=== PATIENT | female | born 1930 | race Caucasian/White ===

== ENCOUNTER 2016-01-22 13:54 | Outpatient (RCR) | payer MEDICARE ==
[2016-01-14 14:10] LABS: BASOPHILS % (AUTO) 0 % (0-10); EOSINOPHILS # (AUTO) 0.2 10^3/uL (0.0-0.3); EOSINOPHILS % (AUTO) 2 % (0-10); LYMPHOCYTES # (AUTO) 3.8 X 10^3 (1.0-4.0); LYMPHOCYTES % (AUTO) 52 % (12-44); MEAN CORPUSCULAR HGB CONC 34 G/DL (32-36); MEAN CORPUSCULAR VOLUME 94 FL (80-99); MEAN PLATELET VOLUME 9.6 FL (7.4-10.4); MONOCYTES # (AUTO) 0.8 X 10^3 (0.0-1.0); MONOCYTES % (AUTO) 11 % (0-12); NEUTROPHILS # (AUTO) 2.5 X 10^3 (1.8-7.8); NEUTROPHILS % (AUTO) 34 % (42-75); PLATELET COUNT 226 10^3/uL (130-400); RED BLOOD COUNT 3.97 10^6/uL (4.35-5.85); RED CELL DISTRIBUTION WIDTH 13.8 % (10.0-14.5); WHITE BLOOD COUNT 7.3 10^3/uL (4.3-11.0)
[2016-01-14 14:11] LABS: MEAN CORPUSCULAR HEMOGLOBIN 31 PG (25-34)
[2016-01-14 14:47] LABS: ALBUMIN 3.9 G/DL (3.2-4.5); BILIRUBIN,TOTAL 0.5 MG/DL (0.1-1.0); CALCIUM 9.5 MG/DL (8.5-10.1); CREATININE SERUM 1.01 MG/DL (0.60-1.30); POTASSIUM 4.2 MMOL/L (3.6-5.0); TOTAL PROTEIN 5.9 G/DL (6.4-8.2)
[~2016-01-22 13:54] MED LIST: AMIT10TA6 PO; AMT10T PO; ASP81TEC PO; ATEN25TA PO; CALC-794 PO; DENOSUMAB 60 MG/1 ML (PROLIA) SQ SCH; FURO-125 PO; HYDR-3583 PO; LORA5TAB9 PO; MULT-963 PO; OMEP20CA6 PO; PANT20TA2 PO; PANT40TA PO; SCR1T1 PO; TAMO20TA2 PO; VIT1TABL93 PO
== END 2016-04-13 | disposition home or self-care (01) ==
LOC: ONC 13:54
PROVIDERS: ATTEND Internal Medicine Hematology & Oncology
DX: C50.912 Malignant neoplasm of unspecified site of left female breast (principal); C85.83 Other specified types of non-Hodgkin lymphoma, intra-abdominal lymph nodes; M81.0 Age-related osteoporosis without current pathological fracture; N18.3 Chronic kidney disease, stage 3 (moderate); Z92.3 Personal history of irradiation; Z90.79 Acquired absence of other genital organ(s); Z79.899 Other long term (current) drug therapy; Z17.0 Estrogen receptor positive status [ER+]; Z92.21 Personal history of antineoplastic chemotherapy
CPT/HCPCS: 36415; 80053; 83615; 85025; 96372; 99213

== ENCOUNTER 2016-07-14 10:45 | Outpatient (RCR) | payer MEDICARE ==
[~2016-07-14 10:45] MED LIST changes: -DENOSUMAB 60 MG/1 ML (PROLIA) SQ SCH
== END 2016-07-27 15:54 | disposition home or self-care (01) ==
PROVIDERS: ATTEND Family Medicine
DX: M75.52 Bursitis of left shoulder (principal)

== ENCOUNTER 2016-07-26 14:45 | Outpatient (RCR) | payer MEDICARE ==
[2016-07-26 15:11] LABS: BASOPHILS # (AUTO) 0.1 10^3/uL (0.0-0.1); BASOPHILS % (AUTO) 1 % (0-10); EOSINOPHILS # (AUTO) 0.3 10^3/uL (0.0-0.3); EOSINOPHILS % (AUTO) 4 % (0-10); LYMPHOCYTES # (AUTO) 2.8 X 10^3 (1.0-4.0); LYMPHOCYTES % (AUTO) 41 % (12-44); MEAN CORPUSCULAR HGB CONC 33 G/DL (32-36); MEAN CORPUSCULAR VOLUME 96 FL (80-99); MEAN PLATELET VOLUME 9.3 FL (7.4-10.4); MONOCYTES # (AUTO) 0.8 X 10^3 (0.0-1.0); MONOCYTES % (AUTO) 11 % (0-12); NEUTROPHILS # (AUTO) 2.9 X 10^3 (1.8-7.8); NEUTROPHILS % (AUTO) 43 % (42-75); PLATELET COUNT 262 10^3/uL (130-400); RED BLOOD COUNT 3.91 10^6/uL (4.35-5.85); RED CELL DISTRIBUTION WIDTH 13.9 % (10.0-14.5); WHITE BLOOD COUNT 6.8 10^3/uL (4.3-11.0)
[2016-07-26 15:12] LABS: MEAN CORPUSCULAR HEMOGLOBIN 31 PG (25-34)
[2016-07-26 16:06] LABS: ALBUMIN 3.6 G/DL (3.2-4.5); BILIRUBIN,TOTAL 0.5 MG/DL (0.1-1.0); CREATININE SERUM 0.92 MG/DL (0.60-1.30); POTASSIUM 4.1 MMOL/L (3.6-5.0); TOTAL PROTEIN 5.6 G/DL (6.4-8.2)
[2016-07-26] MEDS ORDERED: DENOSUMAB 60 MG/1 ML (PROLIA) SQ SCH (16:20)
== END 2016-10-24 | disposition home or self-care (01) ==
LOC: ONC 14:45
PROVIDERS: ATTEND Internal Medicine Hematology & Oncology
DX: C50.112 Malignant neoplasm of central portion of left female breast (principal); C85.83 Other specified types of non-Hodgkin lymphoma, intra-abdominal lymph nodes; M81.0 Age-related osteoporosis without current pathological fracture; N18.3 Chronic kidney disease, stage 3 (moderate); Z92.3 Personal history of irradiation; Z90.79 Acquired absence of other genital organ(s); Z79.899 Other long term (current) drug therapy; Z17.0 Estrogen receptor positive status [ER+]; Z92.21 Personal history of antineoplastic chemotherapy
CPT/HCPCS: 36415; 80053; 83615; 85025; 96372; 99213

== ENCOUNTER → 2016-07-26 | Outpatient (CLI) | payer MEDICARE | LOC: LAB 15:07 | PROVIDERS: ATTEND Internal Medicine | DX: R73.9 Hyperglycemia, unspecified (principal) | CPT/HCPCS: 36415; 83036 ==

== ENCOUNTER 2016-11-08 11:00 | Outpatient (CLI) | payer MEDICARE ==
[~2016-11-08] VITALS: Ht 165.1 cm; Wt 57.2 kg
[2016-11-08] MEDS ORDERED: ATEN50TA PO (11:03)
[2016-11-08] MEDS ORDERED: SUCR1TAB PO (11:03)
[2016-11-08] MEDS ORDERED: AMIT25TA9 PO (11:03)
[2016-11-08] MEDS ORDERED: PANT40TA3 PO (11:03)
[2016-11-08] MEDS ORDERED: CHOL500049 PO (11:03)
== END 2016-11-08 11:42 ==
LOC: PREOP 11:00
PROVIDERS: ATTEND Surgery
DX: Z01.818 Encounter for other preprocedural examination (principal); K21.9 Gastro-esophageal reflux disease without esophagitis; R11.0 Nausea; R10.11 Right upper quadrant pain

== ENCOUNTER 2016-11-09 09:25 | Day surgery (SDC) | payer MEDICARE ==
[~2016-11-09] VITALS: Ht 165.1 cm; Wt 57.2 kg
[~2016-11-09 09:25] MED LIST changes: +AMIT25TA9 PO; +ATEN50TA PO; +CHOL500049 PO; +PANT40TA3 PO; +SUCR1TAB PO
[2016-11-09 09:35] VITALS: BP 115/64
[2016-11-09] MEDS ORDERED: NS IV 500 ML 500 ML IV PRN (09:35)
[2016-11-09] MEDS ORDERED: NS IV 500 ML 500 ML ONE (09:38)
--- NOTE | 2016-11-09 09:43 | Conscious Sedation/ASA ---
Conscious Sedation Pre-Proced Time Reviewed: 09:30 ASA Class: 2 Airway Mallampati Classification: (manzanita appropriate class) I. II. III, IV Lungs Heart ASA score ASA 1: a normal healthy patient ASA 2: a patient with a mild systemic disease (mid diabetes, controlled hypertension, obesity ASA 3: a patient with a severe systemic disease that limits activity (angina , COPD, prior Myocardial infarction) ASA 4: a patient with an incapacitating disease that is a constant threat to life (CHF, renal failure) ASA 5: a moribund patient not expected to survive 24 hrs. (ruptured aneurysm) ASA 6: a declared brain patient whose organs are being harvested. For emergent operations, add the letter E after the classification Grade 2 Sedation Plan: Analgesia, Amnesia, Plan communicated to team members, Discussed options with patient/fam, Discussed risks with patient/fam Note The patient is an appropriate candidate to undergo the planned procedure, sedation, and anesthesia. The patient immediately re-assessed prior to indication. INDIANA LOBO MD Nov 09, 2016 9:43 am
--- NOTE | 2016-11-09 09:44 | Progress Note-Pre Operative ---
Pre-Operative Progress Note H&P Reviewed The H&P was reviewed, patient examined and no changes noted. Date Seen by Provider: Nov 09, 2016 Time Seen by Provider: : Date H&P Reviewed: Nov 09, 2016 Time H&P Reviewed: : Pre-Operative Diagnosis: INDIANA OLMOS MD Nov 09, 2016 9:44 am
[2016-11-09] MEDS ORDERED: MIDAZOLAM 2 MG/2 ML (VERSED) VIAL IVP PRN (09:45)
[2016-11-09] MEDS ORDERED: ACETAMINOPHEN 325 MG TABLET/CAPLET (TYLENOL) PO PRN (09:45)
[2016-11-09] MEDS ORDERED: HYDROcodone/APAP 5 MG/325 MG (LORTAB) TAB PO PRN (09:45)
[2016-11-09] MEDS ORDERED: ONDANSETRON 4 MG/2 ML (SDV) Z0FRAN IV PRN (09:45)
[2016-11-09] MEDS ORDERED: LIDOCAINE JELLY 2% (XYLOCAINE) 5 ML TUBE MM PRN (09:45)
[2016-11-09] MEDS ORDERED: HURRICAINE EXT TUBE (BENZOCAINE) XX PRN (09:45)
[2016-11-09] MEDS ORDERED: fentaNYL INJECTION 100 MCG/2 ML AMP ONE (09:49)
[2016-11-09] MEDS ORDERED: LIDOCAINE JELLY 2% (XYLOCAINE) 5 ML TUBE ONE (09:49)
[2016-11-09] MEDS ORDERED: MIDAZOLAM 2 MG/2 ML (VERSED) VIAL ONE ×3 (09:49→09:50)
[2016-11-09] MEDS ORDERED: HURRICAINE EXT TUBE (BENZOCAINE) ONE (09:50)
[2016-11-09] MEDS: fentaNYL INJECTION 100 MCG/2 ML AMP IVP PRN ×2 (10:02→10:19)
[2016-11-09 11:00] VITALS: BP 114/53
--- NOTE | 2016-11-09 11:02 | Progress Note-Post Operative ---
Post-Operative Progess Note Surgeon (s)/Auto Rental Supervisor (s) Surgeon INDIANA LOBO MD Auto Rental Supervisor: none Pre-Operative Diagnosis GERD Post-Operative Diagnosis reflux esophagitis(class B), moderate HH(3cm), mild gastritis. Procedure & Operative Findings Date of Procedure 11/09/16 Procedure Performed/Findings EGD with bx Anesthesia Type CS Estimated Blood Loss Estimated blood loss (mL): minimal Specimens/Packing Specimens Removed GE jxn, antrum INDIANA LOBO MD Nov 09, 2016 11:02 am
--- NOTE | 2016-11-09 11:04 | Discharge Inst-Surgical ---
D/C Lap Instructions-LASHELL Follow Up Appt in 4 weeks Activity as tolerated High Fiber Diet 25g or more per day Avoid Alcohol, Caffeine, Spicy [place] and Acid foods. Drink 64 fluid oz or more of fluids per day. Symptoms to Report: Fever over 101 degree F, Nausea/Vomiting If any problems/questions: Contact your physician or go to Emergency Room INDIANA LOBO MD Nov 09, 2016 11:04 am
[2016-11-09 11:30] VITALS: BP 110/61
[2016-11-09 12:30] VITALS: BP 110/61
--- NOTE | 2016-11-09 14:09 | OPERATIVE REPORT ---
DATE OF SERVICE: 11/09/2016 ATTENDING PRIMARY CARE PHYSICIAN: Dr. Betzy Joseph PREOPERATIVE DIAGNOSIS: Gastroesophageal reflux disease. POSTOPERATIVE DIAGNOSES: Reflux esophagitis class B, moderate-sized hiatal hernia 3 cm in size and uigh-hv-cauruski gastritis. PROCEDURE: EGD with biopsy. SURGEON: Indiana Lobo MD ANESTHESIA: Conscious sedation. ESTIMATED BLOOD LOSS: Minimal. FINDINGS: Reflux esophagitis class B, moderate-sized hiatal hernia 3 cm in size and cmbs-rn-zhperbrg gastritis. No distal obstructions. DISPOSITION: The patient tolerated the procedure well. 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 She underwent chemotherapy and radiation. She also does have a history of left breast cancer, underwent lumpectomy and sentinel biopsy in 2009 followed by radiation. She also underwent another round of chemotherapy with Rituxan for the lymphoma in 2005. She did have an EGD done in August of 2014 for reflux type of symptoms and found to have a reflux esophagitis as well as hiatal hernia. She is having recurrent symptoms of gastroesophageal reflux disease. DESCRIPTION OF PROCEDURE: The patient was brought to the endoscopy suite, laid in the left lateral decubitus position. After adequate IV pain and sedative medications and conscious sedation anesthesia, the mouthpiece was applied. The endoscope was placed in the mouth, visualizing the pharynx and hypopharyngeal region. Vocal cords, epiglottis and vallecula identified and appeared to be normal. The endoscope was then advanced to the first, second and third portions of the esophagus at the level of the GE junction, the GE junction was intrathoracic consistent with a hiatal hernia. There were no ulcers or strictures identified in this region. A biopsy was taken of the GE junction using biopsy forceps with visualization of good hemostasis. The endoscope was then easily advanced in the stomach and the endoscope retroflexed, visualizing a moderate-sized hiatal hernia approximately 3 cm in size. This appears to be the root of her symptoms including the pain as well as the recurrent episodes of reflux. There was tbjm-xq-jtflhtup gastritis. There were no formal ulcers, polyps or any neoplasms throughout the stomach. A biopsy of this was taken of the stomach antrum with visualization of good hemostasis. The endoscope was then advanced to the pylorus and the first and second portions of the duodenum, which appeared normal with no distal obstructions. The endoscope was then slowly withdrawn taking a second look and suctioning of residual air with no additional findings. The patient tolerated the procedure well. We will have her continue with medical management with the necessary lifestyle and diet accommodation including small and more frequent meals, avoidance of eating at night as well as head elevation while lying supine. She is currently on Protonix 40 mg b.i.d. as well as Carafate and we will have her continue with medical regimen. She also needs to avoid caffeinated beverages, spicy, greasy and acidic foods. Job ID: [id number] DocumentID: [id number] Dictated Date: 11/09/2016 10:47:56 R&D Lab Technician Date: 11/09/2016 14:09:29 Dictated By: INDIANA LOBO MD
== END 2016-11-09 12:30 | disposition home or self-care (01) ==
LOC: ENDO 09:25
PROVIDERS: ATTEND Surgery
DX: K21.0 Gastro-esophageal reflux disease with esophagitis (principal); K44.9 Diaphragmatic hernia without obstruction or gangrene; K29.70 Gastritis, unspecified, without bleeding; I10 Essential (primary) hypertension; Z85.3 Personal history of malignant neoplasm of breast; Z85.72 Personal history of non-Hodgkin lymphomas; Z79.899 Other long term (current) drug therapy

== ENCOUNTER → 2017-01-03 | Outpatient (CLI) | payer MEDICARE ==
--- NOTE | 2017-01-03 12:29 | Diagnostic Imaging Report ---
EXAMINATION: PA and lateral views of the chest. INDICATION: Shortness of breath. COMPARISON: 05/08/15. FINDINGS: There is elevation of the left hemidiaphragm similar to prior exams. There is mildly enlarged cardiac size. Suggestion of a hiatal hernia is noted and is confirmed on a prior CT scan. Mild medial right basilar atelectasis or scarring is noted. No effusion or pneumothorax. Lower thoracic spine compression fractures seen at T10 and T12 levels. Surgical clips in the upright abdomen and over the left breasts are seen. IMPRESSION: Chronic elevation of the left hemidiaphragm. Mild atelectasis or scarring in the medial right lung base. Dictated by: Dictated on workstation # [id number]
== END ==
LOC: RAD 11:50
PROVIDERS: ATTEND Nurse Practitioner Family
DX: R06.02 Shortness of breath (principal)
CPT/HCPCS: 71020

== ENCOUNTER → 2017-03-17 | Outpatient (CLI) | payer MEDICARE | LOC: CARD 10:56 | PROVIDERS: ATTEND Family Medicine | DX: R01.1 Cardiac murmur, unspecified (principal); I48.91 Unspecified atrial fibrillation | CPT/HCPCS: 93306 ==

== ENCOUNTER → 2017-04-17 | Outpatient (CLI) | payer MEDICARE ==
--- NOTE | 2017-04-17 11:13 | Diagnostic Imaging Report ---
INDICATION: Right rib injury from a fall. FINDINGS: There appears to be a fracture of the right anterolateral sixth rib. There appears to be old healed fractures of the fourth, fifth and seventh ribs. IMPRESSION: There are fractures of the fourth through seventh ribs on the right thoracic cage. These appear old except for possibly the sixth rib which may be acute. Dictated by: Dictated on workstation # [id number]
== END ==
LOC: RAD 10:39
PROVIDERS: ATTEND Nurse Practitioner Family
DX: S20.211A Contusion of right front wall of thorax, initial encounter (principal); Z87.81 Personal history of (healed) traumatic fracture; W19.XXXA Unspecified fall, initial encounter
CPT/HCPCS: 71100

== ENCOUNTER 2017-07-07 09:52 | Outpatient (RCR) | payer MEDICARE ==
[~2017-07-07 09:52] MED LIST changes: +DENOSUMAB 60 MG/1 ML (PROLIA) CANCER CTR SQ SCH
[2017-07-07 10:09] LABS: BASOPHILS % (AUTO) 1 % (0-10); EOSINOPHILS # (AUTO) 0.3 10^3/uL (0.0-0.3); EOSINOPHILS % (AUTO) 4 % (0-10); HEMATOCRIT 40 % (35-52); HEMOGLOBIN 13.5 G/DL (11.5-16.0); LYMPHOCYTES # (AUTO) 3.5 X 10^3 (1.0-4.0); LYMPHOCYTES % (AUTO) 48 % (12-44); MEAN CORPUSCULAR HEMOGLOBIN 31 PG (25-34); MEAN CORPUSCULAR HGB CONC 34 G/DL (32-36); MEAN CORPUSCULAR VOLUME 91 FL (80-99); MEAN PLATELET VOLUME 9.9 FL (7.4-10.4); MONOCYTES # (AUTO) 0.8 X 10^3 (0.0-1.0); MONOCYTES % (AUTO) 10 % (0-12); NEUTROPHILS # (AUTO) 2.7 X 10^3 (1.8-7.8); NEUTROPHILS % (AUTO) 38 % (42-75); PLATELET COUNT 189 10^3/uL (130-400); RED BLOOD COUNT 4.39 10^6/uL (4.35-5.85); WHITE BLOOD COUNT 7.3 10^3/uL (4.3-11.0)
[2017-07-07 10:27] LABS: BILIRUBIN,TOTAL 0.6 MG/DL (0.1-1.0); CALCIUM 9.6 MG/DL (8.5-10.1); CREATININE SERUM 1.11 MG/DL (0.60-1.30); POTASSIUM 3.9 MMOL/L (3.6-5.0); TOTAL PROTEIN 6.2 GM/DL (6.4-8.2)
== END 2017-10-05 | disposition home or self-care (01) ==
LOC: ONC 09:52
PROVIDERS: ATTEND Internal Medicine Hematology & Oncology
DX: C50.112 Malignant neoplasm of central portion of left female breast (principal); C85.83 Other specified types of non-Hodgkin lymphoma, intra-abdominal lymph nodes; M81.0 Age-related osteoporosis without current pathological fracture; N18.3 Chronic kidney disease, stage 3 (moderate); Z92.3 Personal history of irradiation; Z90.79 Acquired absence of other genital organ(s); Z79.899 Other long term (current) drug therapy; Z17.0 Estrogen receptor positive status [ER+]; Z92.21 Personal history of antineoplastic chemotherapy
CPT/HCPCS: 36415; 80053; 83615; 85025; 96372

== ENCOUNTER 2018-01-04 13:51 | Outpatient (RCR) | payer MEDICARE ==
[~2018-01-04 13:51] MED LIST changes: -DENOSUMAB 60 MG/1 ML (PROLIA) CANCER CTR SQ SCH
[2018-01-04] MEDS ORDERED: DENOSUMAB 60 MG/1 ML (PROLIA) CANCER CTR SQ SCH (14:15)
== END 2018-04-04 | disposition home or self-care (01) ==
LOC: ONC 13:51
PROVIDERS: ATTEND Internal Medicine Hematology & Oncology
DX: C50.112 Malignant neoplasm of central portion of left female breast (principal); C85.83 Other specified types of non-Hodgkin lymphoma, intra-abdominal lymph nodes; M81.0 Age-related osteoporosis without current pathological fracture; N18.3 Chronic kidney disease, stage 3 (moderate); Z92.3 Personal history of irradiation; Z90.79 Acquired absence of other genital organ(s); Z79.899 Other long term (current) drug therapy; Z17.0 Estrogen receptor positive status [ER+]; Z92.21 Personal history of antineoplastic chemotherapy
CPT/HCPCS: 96372

== ENCOUNTER → 2018-03-08 | Outpatient (CLI) | payer MEDICARE ==
--- NOTE | 2018-03-08 13:49 | Diagnostic Imaging Report ---
INDICATION: Osteoporosis screening in postmenopausal female. Patient has past history of osteopenia. COMPARISON: 03/01/2013. FINDINGS: AP Spine L1-L4: [BMD (g/cm2): 1.200] [T-Score: 0.0] [Z-Score: 2.2] [BMD Previous: 1.195] [BMD % Change: 0.4] LT Hip Neck: [BMD (g/cm2): .847] [T-Score: -1.4] [Z-Score: 1.3] LT Hip Total: [BMD (g/cm2):0.896] [T-Score:-0.9] [Z-Score: 1.7] [BMD Previous: .917] [BMD % Change: n/a] RT Hip Neck: [BMD (g/cm2):0.797] [T-Score:-1.7] [Z-Score:0.9] RT Hip Total: [BMD (g/cm2):0.785] [T-score:-1.8] [Z-Score:0.8] [BMD Previous:0.804] [BMD % Change:n/a] *Indicates significant change from prior examination based on 95% confidence level. World Health Organization criteria for BMD interpretation classify patients as Normal (T-score at or above -1.0), Osteopenic (T-score between -1.0 and -2.5) or Osteoporotic (T-score at or below -2.5). LIMITATIONS AND MODIFICATION: None. FRACTURE RISK (FRAX SCORE): The ten year probability of (%): Major Osteoporotic Fracture: [13] Hip Fracture: [4.1] IMPRESSION: 1. Osteopenia (Low bone mass). 2. No significant change in bone mineral density since prior examination. 3. See below National Osteoporosis Foundation guidelines on when to potentially initiate pharmacologic therapy. Based on the National Osteoporosis Foundation Guidelines, pharmacologic treatment should be initiated in any of the following, unless clinical conditions suggest otherwise: * Any patient with prior fragility fracture of the hip or vertebrae. A spine fracture indicates 5X risk for subsequent spine fracture and 2X risk for subsequent hip fracture. * Osteoporosis (T-score <-2.5). * Postmenopausal women and men age 50 and older with low bone mass/osteopenia (T-score between -1.0 and -2.5) by DXA and 10-year major osteoporotic fracture greater than 20% or a 10-year probability of hip fracture greater than 3%. These fracture risks are supplied above in the FRAX score, if applicable. * Clinician judgement and/or patient preferences may indicate treatment for people with 10-year fracture probabilities above or below these levels. Dictated by: Dictated on workstation # [id number]
== END ==
LOC: RAD 11:41
PROVIDERS: ATTEND Nurse Practitioner Family
DX: Z13.820 Encounter for screening for osteoporosis (principal); M85.88 Other specified disorders of bone density and structure, other site; Z78.0 Asymptomatic menopausal state
CPT/HCPCS: 77080

== ENCOUNTER 2018-04-28 17:05 | Inpatient (IN) | payer MEDICARE ==
[~2018-04-28] VITALS: Ht 160 cm; Wt 54.6 kg
[2018-04-28 17:55] VITALS: BP 115/69
--- NOTE | 2018-04-28 17:55 | NUR ---
REINALDO CHACON admitted to room 409-1, with an admitting diagnosis of PNA, on 04/28/18 from direct admit via wc, accompanied by son.REINALDO CHACON introduced to surroundings, call light, bed controls, phone, TV, temperature control, lights, meal times, smoking policy, visitor policy, side rail policy, bathrooms and showers. Patient Rights given to patient in the handbook. CHACONREINALDO Layne verbalizes understanding that [facility] is not responsible for the loss or damage to any personal effects or valuables that are kept in the patients posession during their hospitalization. The Patient's Care Plans were discussed with the patient and family as well as Discharge Planning. REINALDO CHACON/son verbalizes understanding of Interdisciplinary Patient Education. Patient and/or family were informed about the Rapid Response Team and its purpose.
[2018-04-28] MEDS ORDERED: D5 LR IV SOLUTION 1,000 ML IV SCH (18:00)
[2018-04-28] MEDS ORDERED: AZITHROMYCIN INJECTION 500 MG in NS (IVPB) 250 ML IV ONE (18:00)
[2018-04-28 18:34] LABS: BASOPHILS % (AUTO) 0 % (0-10); EOSINOPHILS % (AUTO) 0 % (0-10); HEMATOCRIT 40 % (35-52); HEMOGLOBIN 13.9 G/DL (11.5-16.0); LYMPHOCYTES # (AUTO) 1.9 X 10^3 (1.0-4.0); LYMPHOCYTES % (AUTO) 23 % (12-44); MEAN CORPUSCULAR HEMOGLOBIN 32 PG (25-34); MEAN CORPUSCULAR HGB CONC 35 G/DL (32-36); MEAN CORPUSCULAR VOLUME 91 FL (80-99); MEAN PLATELET VOLUME 9.8 FL (7.4-10.4); MONOCYTES # (AUTO) 1.2 X 10^3 (0.0-1.0); MONOCYTES % (AUTO) 14 % (0-12); NEUTROPHILS # (AUTO) 5.2 X 10^3 (1.8-7.8); NEUTROPHILS % (AUTO) 63 % (42-75); PLATELET COUNT 176 10^3/uL (130-400); RED CELL DISTRIBUTION WIDTH 13.9 % (10.0-14.5); WHITE BLOOD COUNT 8.3 10^3/uL (4.3-11.0)
[2018-04-28] MEDS ORDERED: ACETAMINOPHEN 325 MG TABLET PO PRN (19:00)
[2018-04-28 19:05] LABS: ALBUMIN 4.5 GM/DL (3.2-4.5); BILIRUBIN,TOTAL 0.8 MG/DL (0.1-1.0); CALCIUM 9.9 MG/DL (8.5-10.1); CREATININE SERUM 0.99 MG/DL (0.60-1.30); TOTAL PROTEIN 7.1 GM/DL (6.4-8.2)
--- NOTE | 2018-04-28 19:09 | Diagnostic Imaging Report ---
INDICATION: Cough. COMPARISON: 01/03/2017. TECHNIQUE: Single view of the chest was obtained. FINDINGS: Left lower lobe subtotal consolidations are present. Heart is enlarged. No pneumothorax. Possible trace left pleural effusion. IMPRESSION: Left lower lobe consolidations are likely due to pneumonia. Possible trace left parapneumonic effusion. Advise followup PA and lateral chest radiographs in 4 weeks after appropriate medical management to ensure resolution. Dictated by: Dictated on workstation # [id number]
[2018-04-28] MEDS ORDERED: ONDANSETRON 4 MG (ZOFRAN) ORAL DISSOLVE TAB PO PRN (19:30)
[2018-04-28] MEDS ORDERED: ONDANSETRON 4 MG/2 ML (SDV) Z0FRAN IVP PRN (19:30)
[2018-04-28] MEDS ORDERED: HYDROcodone/APAP 5 MG/325 MG (LORTAB) TAB PO PRN (19:30)
[2018-04-28] MEDS ORDERED: CALCIUM CARBONATE 500 MG (TUMS) TAB.CHEW PO PRN (19:30)
[2018-04-28] MEDS ORDERED: MELATONIN 3 MG TABLET PO PRN (19:30)
[2018-04-28] MEDS ORDERED: diphenhydrAMINE 25 MG TAB (BENADRYL) PO PRN (19:30)
[2018-04-28] MEDS ORDERED: LOPERAMIDE 2 MG (IMODIUM) CAP PO PRN (19:30)
[2018-04-28] MEDS ORDERED: guaiFENesin/CODEINE (ROBITUSSIN AC) 10ML UDC PO PRN (19:30)
[2018-04-28 20:05] VITALS: BP 128/69
[2018-04-28] MEDS ORDERED: D5 NS 1000 ML IV SOLUTION 1,000 ML IV ONE (20:10)
[2018-04-28] MEDS ORDERED: WATER (STERILE) FOR INJECTION 10 ML ONE (20:12)
[2018-04-28] MEDS ORDERED: cefTRIAXone 1,000 MG IV (ROCEPHIN) VIAL ONE (20:12)
[2018-04-28] MEDS ORDERED: ENOXAPARIN 40 MG/0.4 ML (LOVENOX) SYR ONE (20:25)
[2018-04-28] MEDS: D5 NS 1000 ML IV SOLUTION 1,000 ML IV SCH (20:26)
[2018-04-28] MEDS: cefTRIAXone FOR IV USE 1,000 MG in WATER (STERILE) FOR INJECTION 10 ML IV SCH (20:26)
[2018-04-28] MEDS: ENOXAPARIN 40 MG/0.4 ML (LOVENOX) SYR SC SCH (20:29)
[2018-04-28 20:32] VITALS: BP 128/69
[2018-04-28] MEDS: MEMANTINE 5 MG (NAMENDA) TABLET PO SCH (21:15)
[2018-04-28] MEDS: PANTOPRAZOLE 40 MG (PROTONIX) TAB PO SCH (21:15)
[2018-04-28] MEDS: ACETAMINOPHEN 500 MG TAB (TYLENOL) PO PRN (23:27)
[2018-04-28 23:39] VITALS: BP 117/65
[2018-04-29] MEDS: RT-ALBUTEROL SULF 2.5 MG/3 ML PRE-MIX VIAL INH SCH ×3 (00:43→14:51)
[2018-04-29] MEDS ORDERED: RT-ALBUTEROL SULF 2.5 MG/3 ML PRE-MIX VIAL INH PRN ×2 (00:45→07:00)
[2018-04-29 04:00] VITALS: BP 110/53
[2018-04-29] MEDS ORDERED: MEMA5TAB16 PO (05:06)
[2018-04-29] MEDS ORDERED: RIVA6CAP5 PO (05:10)
[2018-04-29] MEDS: D5 NS 1000 ML IV SOLUTION 1,000 ML IV SCH (05:45)
[2018-04-29 06:44] VITALS: BP 110/53
[2018-04-29 08:00] VITALS: BP 108/61
[2018-04-29] MEDS ORDERED: FLU QUADRIvalent (5+ YOA) 2018-2019 (AFLURIA) 0.5 ML IM ONE (08:15)
[2018-04-29 08:51] LABS: BASOPHILS % (AUTO) 0 % (0-10); EOSINOPHILS % (AUTO) 0 % (0-10); HEMATOCRIT 35 % (35-52); HEMOGLOBIN 11.9 G/DL (11.5-16.0); LYMPHOCYTES # (AUTO) 1.9 X 10^3 (1.0-4.0); LYMPHOCYTES % (AUTO) 25 % (12-44); MEAN CORPUSCULAR HEMOGLOBIN 32 PG (25-34); MEAN CORPUSCULAR HGB CONC 35 G/DL (32-36); MEAN CORPUSCULAR VOLUME 92 FL (80-99); MEAN PLATELET VOLUME 9.7 FL (7.4-10.4); MONOCYTES # (AUTO) 1.2 X 10^3 (0.0-1.0); MONOCYTES % (AUTO) 16 % (0-12); NEUTROPHILS # (AUTO) 4.4 X 10^3 (1.8-7.8); NEUTROPHILS % (AUTO) 59 % (42-75); PLATELET COUNT 147 10^3/uL (130-400); RED CELL DISTRIBUTION WIDTH 14.2 % (10.0-14.5); WHITE BLOOD COUNT 7.5 10^3/uL (4.3-11.0)
[2018-04-29 09:07] LABS: BUN/CREATININE RATIO 12; CALCIUM 8.5 MG/DL (8.5-10.1); CARBON DIOXIDE 23 MMOL/L (21-32); CHLORIDE 102 MMOL/L (98-107); CREATINE KINASE 2464 U/L (29-168); CREATININE SERUM 0.83 MG/DL (0.60-1.30); GFR ESTIMATED > 60; GLUCOSE 145 MG/DL (70-105); POTASSIUM 3.5 MMOL/L (3.6-5.0); SODIUM 135 MMOL/L (135-145)
[2018-04-29 09:25] LABS: BAND NEUTROPHILS 3 %; LYMPHOCYTES % (MANUAL) 14 %; MONOCYTES % (MANUAL) 20 %; NEUTROPHILS % (MANUAL) 63 %
[2018-04-29 09:26] LABS: RBC MORPH NORMAL
[2018-04-29 09:27] LABS: HYPERSEGMENTED NEUT SLIGHT
[2018-04-29] MEDS: MEMANTINE 5 MG (NAMENDA) TABLET PO SCH ×2 (09:36→21:22)
[2018-04-29] MEDS: PANTOPRAZOLE 40 MG (PROTONIX) TAB PO SCH ×2 (09:36→21:21)
[2018-04-29] MEDS: RIVASTIGMINE 1.5 MG (EXELON) CAP PO SCH (09:36)
--- NOTE | 2018-04-29 10:45 | NUR ---
RECEIVED VERBAL ORDER FROM DR. CHACON TO STOP ROBITUSSIN WITH CODEINE, ADD ROBITUSSIN DM 10CC Q4H PRN. THIS RN ASKED ABOUT OTHER HOME MEDS IF THEY NEED ADDRESSED. DR. FRANCISCO HAS RESTARTED ALL HE WANTS AT THIS TIME.
[2018-04-29] MEDS ORDERED: POTASSIUM CHLORIDE INJ 20 MEQ in D5 NS 1000 ML IV SOLUTION 1,000 ML IV SCH (11:15)
[2018-04-29] MEDS ORDERED: guaiFENesin/DM (ROBITUSSIN DM) 10 ML UDC PO PRN (11:15)
--- NOTE | 2018-04-29 11:55 | History & Physical-Hospitalist ---
History of Present Illness HPI/Chief Complaint CC: Pneumonia HPI: This is an 87yoWF clinic patient of Dr Joseph who presents as a direct admit from home after being found down for a short time before being found and suspected pneumonia with wheezing and dehydration and mild rhabdomyolysis. Patient has moderate dementia and was in the midst of moving to [facility] within the month until this acute illness has likely changed to plans to skilled care prior to AL placement. Currently she appears to be fatigued and chronically ill and very declined since last seen by this examiner. Her family is at the bedside. She is DNR and conservative management will be initiated for supportive care. Patient had a good night and slept a bit she reports and she denies any pain. Will consult PT/OT and SW tomorrow and maintain fluids in the meantime. Source: patient, family, old records Date Seen 04/29/18 Time Seen by a Provider: 10:30 Attending Physician Karen Conte DO PCP Yeimi Joseph DO Referring Physician Date of Admission Apr 28, 2018 at 17:42 Home Medications & Allergies Home Medications Reviewed patient Home Medication Reconciliation performed by pharmacy medication reconciliations certified ophthalmic technician and/or nursing. Patients Allergies have been reviewed. Allergies Allergies Coded Allergies Penicillins (Unverified Allergy, Unknown, RASH, 08/13/14) morphine (Verified Allergy, Unknown, 12/08/08) Uncoded Allergies SSRI ( Allergy, Unknown, RAPID PULSE, BP INCREASE, 08/13/14) Past Qpnhace-Xwxqey-Bjnedc Hx Past Med/Social Hx: Reviewed Nursing Past Med/Soc Hx, Reviewed and Corrections made Patient Social History Employed/Student: retired Alcohol Use: Denies Use Recreational Drug Use: No Smoking Status: Never a Smoker Physical Abuse Screen: No Sexual Abuse: No Recent Foreign Travel: No Contact w/other who traveled: No Recent Hopitalizations: No Recent Infectious Disease Expo: No Immunizations Up To Date Date of Pneumonia Vaccine: Jan 06, 2011 Date of Influenza Vaccine: Jan 06, 2010 Seasonal Allergies Seasonal Allergies: No Past Medical History Surgeries: Hysterectomy, Tonsillectomy Currently Using CPAP: No Currently Using BIPAP: No Cardiac: Atrial Fibrillation Neurological: Dementia Reproductive: No Sexually Transmitted Disease: No Gastrointestinal: Gastroesophageal Reflux, Hepatitis Musculoskeletal: Osteoporosis, Arthritis Cancer: Breast, Lymphoma What Type of Treatment Did You: Chemotherapy, Radiation, Surgical Intervention Psychosocial: Sleep Difficulties History of Blood Disorders: No Family History Patient reports no known family medical history. Review of Systems Constitutional: see HPI, chills, dizziness, fever, malaise, weakness EENTM: no symptoms reported Respiratory: cough, dyspnea on exertion, short of breath, wheezing Cardiovascular: no symptoms reported Gastrointestinal: loss of appetite Genitourinary: decreased output Musculoskeletal: no symptoms reported Skin: no symptoms reported Psychiatric/Neurological: Anxiety All Other Systems Reviewed Negative Unless Noted: Yes Physical Exam Physical Exam Vital Signs Vital Signs - First Documented Capillary Refill : Less Than 3 Seconds Height, Weight, BMI Height: 5'3.00" Weight: 118lbs. 8.0oz. 53.535228hu; 19.7 BMI Method: General Appearance: No Apparent Distress, WD/WN, Chronically ill, Other ( declined, fatigued) HEENT: TMs Normal, Normal ENT Inspection Neck: Normal Inspection, Non Tender, Supple Respiratory: No Accessory Muscle Use, No Respiratory Distress, Crackles, Decreased Breath Sounds, Wheezing Cardiovascular: Regular Rate, Rhythm, No Edema, No Gallop, No JVD, No Murmur, Normal Peripheral Pulses Neurologic/Psychiatric: Alert, No Motor/Sensory Deficits, Normal Mood/Affect, knowledge engineer II-XII Norm as Tested, Depressed Affect, Disoriented Skin: Normal Color, Warm/Dry Results Results/Procedures Labs Laboratory Tests 04/28/18 18:27 04/29/18 08:43 Patient resulted labs reviewed. Assessment/Plan Admission Diagnosis Assessment: Pneumonia Wheezing Dehydration Rhabdomyolysis Fall Dementia progressive h/o AF h/o breast cancer Plan: IV abx Nebs O2 Labs in am Home meds Supportive care Skilled at AL Admission Status: Inpatient Order (span 2 midnights) Reason for Inpatient Admission: Pneumonia with rhabdomyolysis will require 3 days of inpt then skilled care Diagnosis/Problems Diagnosis/Problems (1) Pneumonia Status: Acute Qualifiers: Pneumonia type: due to unspecified organism Laterality: right Lung location: lower lobe of lung Qualified Codes: J18.1 - Lobar pneumonia, unspecified organism (2) Dehydration Status: Acute (3) Fall Status: Acute Qualifiers: Encounter type: initial encounter Qualified Codes: W19.XXXA - Unspecified fall, initial encounter (4) Rhabdomyolysis Status: Acute Qualifiers: Rhabdomyolysis type: traumatic Encounter type: initial encounter Qualified Codes: T79.6XXA - Traumatic ischemia of muscle, initial encounter (5) Hypokalemia Status: Acute (6) Dementia Status: Chronic Qualifiers: Dementia type: Alzheimer's disease Alzheimer's disease onset: unspecified onset Dementia behavioral disturbance: without behavioral disturbance Qualified Codes: G30.9 - Alzheimer's disease, unspecified; F02.80 - Dementia in other diseases classified elsewhere without behavioral disturbance (7) HX: breast cancer Status: Chronic (8) Atrial fibrillation Status: Chronic Qualifiers: Atrial fibrillation type: paroxysmal Qualified Codes: I48.0 - Paroxysmal atrial fibrillation (9) Frailty Status: Acute (10) DNR (do not resuscitate) Status: Acute Clinical Quality Measures DVT/VTE Risk/Contraindication: Risk Factor Score Per Nursin RFS Level Per Nursing on Admit: 4+=Very High KAREN CONTE DO Apr 29, 2018 11:55
[2018-04-29 12:00] VITALS: BP 109/63
[2018-04-29] MEDS: D5 NS W/KCL 20 MEQ/L 1,000 ML IV SCH ×2 (12:22→23:47)
--- NOTE | 2018-04-29 15:00 | NUR ---
HERLINDA, RT INFORMED PATIENT NOW ON NC3L
[2018-04-29 16:05] VITALS: BP 137/90
[2018-04-29] MEDS: cefTRIAXone FOR IV USE 1,000 MG in WATER (STERILE) FOR INJECTION 10 ML IV SCH (17:07)
[2018-04-29] MEDS: ACETAMINOPHEN 500 MG TAB (TYLENOL) PO PRN (17:29)
[2018-04-29] MEDS ORDERED: AZITHROMYCIN INJECTION 250 MG in NS (IVPB) 250 ML IV SCH (18:00)
[2018-04-29] MEDS: ENOXAPARIN 40 MG/0.4 ML (LOVENOX) SYR SC SCH (19:26)
[2018-04-29 20:00] VITALS: BP 112/66
[2018-04-29] MEDS ORDERED: AMITRIPTYLINE 25 MG (ELAVIL) TAB PO SCH (21:00)
[2018-04-29] MEDS ORDERED: NON-FORMULARY MEDICATION 1 EA EA (Memantine HCl 5 MG) PO SCH (21:00)
[2018-04-29] MEDS ORDERED: PANTOPRAZOLE 40 MG (PROTONIX) TAB PO SCH (21:00)
[2018-04-29] MEDS: ATENOLOL 50 MG (TENORMIN) TAB PO SCH (21:22)
[2018-04-30] VITALS: BP 100/65
[2018-04-30] MEDS: RT-ALBUTEROL SULF 2.5 MG/3 ML PRE-MIX VIAL INH SCH ×6 (00:20→20:00)
[2018-04-30 04:00] VITALS: BP 153/86
[2018-04-30] MEDS ORDERED: FUROSEMIDE 40 MG/4 ML INJ (LASIX) ONE ×2 (04:08→20:00)
--- NOTE | 2018-04-30 04:10 | NUR ---
0350 RT INFORMED PT LUNGS SOUNDING WET 0358 UPON ASSESSMENT, PT IS SOA AR RESTING, LABORED BREATHING, RATE 26. LUNGS SOUND WET. DR SOOD NOTIFY AND ORDERED X1 DOSE LASIX 20MG IV AND STOP FLUIDS
[2018-04-30 04:15] LABS: BILIRUBIN,URINE NEGATIVE (NEGATIVE); CLARITY,URINE CLEAR; COLOR,URINE YELLOW; GLUCOSE, URINE (UA) 1+ (NEGATIVE); KETONES,URINE NEGATIVE (NEGATIVE); LEUKOCYTE ESTERASE ,URINE NEGATIVE (NEGATIVE); NITRITE,URINE NEGATIVE (NEGATIVE); PH,URINE 5 (5-9); PROTEIN,URINE 1+ (NEGATIVE); UROBILINOGEN,URINE NORMAL (NORMAL)
[2018-04-30] MEDS ORDERED: FUROSEMIDE 40 MG/4 ML INJ (LASIX) IVP ONE (04:15)
[2018-04-30 04:23] LABS: BACTERIA,URINE TRACE /HPF; RBC,URINE RARE /HPF; WBC,URINE RARE /HPF
[2018-04-30 07:18] LABS: BUN/CREATININE RATIO 10; CARBON DIOXIDE 24 MMOL/L (21-32); CHLORIDE 104 MMOL/L (98-107); CREATINE KINASE 2507 U/L (29-168); CREATININE SERUM 0.83 MG/DL (0.60-1.30); GFR ESTIMATED > 60; GLUCOSE 109 MG/DL (70-105); POTASSIUM 4.1 MMOL/L (3.6-5.0); SODIUM 135 MMOL/L (135-145)
[2018-04-30 08:00] VITALS: BP 115/70
[2018-04-30] MEDS ORDERED: RIVASTIGMINE TARTRATE 6 MG PO SCH (09:00)
[2018-04-30] MEDS: RIVASTIGMINE 1.5 MG (EXELON) CAP PO SCH (09:13)
[2018-04-30] MEDS: PANTOPRAZOLE 40 MG (PROTONIX) TAB PO SCH ×2 (09:13→21:14)
[2018-04-30] MEDS: MEMANTINE 5 MG (NAMENDA) TABLET PO SCH ×2 (09:13→21:16)
--- NOTE | 2018-04-30 10:10 | Physical Therapy Evaluation ---
PT Evaluation-General Medical Diagnosis Admission Date Apr 28, 2018 at 17:42 Medical Diagnosis: Pneumonia Onset Date: Apr 28, 2018 Therapy Diagnosis Therapy Diagnosis: decreased mobility Height/Weight Height (Feet): 5 Height (Inches): 3.00 Weight (Pounds): 118 Weight (Ounces): 8.0 Precautions Precautions/Isolations: Fall Prevention, Standard Precautions Weight Bear Status Right Lower Extremity: Right Full Weight Bearing Left Lower Extremity: Left Full Weight Bearing Referral Physician: Dr. Conte Reason for Referral: Evaluation/Treatment Medical History Pertinent Medical History: Atrial Fib, Arthritis, Dementia, GERD Additional Medical History Hepatitis, Osteoporosis, Breast and Lymphoma CA Reviewed History: Yes Social History Home: Assisted Living Current Living Status: Spouse Entry Into Home: Level Entry Prior/Core FIM Prior Level of Function Therapy Code Descriptions/Definitions Functional [place] Measure: 0=Not Assessed/NA 4=Minimal Assistance 1=Total Assistance 5=Supervision or Setup 2=Maximal Assistance 6=Modified [place] 3=Moderate Assistance 7=Complete [place] Therapy Quality Codes: 6 Independent with activity with or without an assistive device 5 Patient requires set up or clean up by helper. Patient completes activity by themselves 4 Supervision or touching assist (CGA). Chemult provide cues , steadying assist 3 The helper provides less than half the effort to complete the activity 2 The helper provides more than half the effort to complete the activity 1 Dependent. The helper does all the effort to complete an activity 7 Patient refused to complete or attempt activity 9 The patient did not perform the activity before the current illness or injury 88 Not attempted due to Medical conditions or safety concerns Functional Abilities and Goals: Independent: Patient completed the activities by him/herself, with or without an assistive device, with no assistance from a helper. Needed Some Help: Patient needed partial assistance from another person to complete activities. Dependent: A helper completed the activities for the patient. Unknown: Not Applicable: Bed Mobility: 7 Transfers (B,C,W/C) (FIM): 7 Gait: 7 Indoor Mobility (Ambulation): Independent Prior Devices Use: None PT Evaluation-Current Subjective Pt in bed and agrees to PT. Nurse is in room as well. Pt/Family Goals Pt to return home. Objective Patient Orientation: Person Attachments: Oxygen (2L) ROM/Strength ROM Lower Extremities NT Strength Lower Extremities NT Integumentary/Posture Bowel Incontinence: No Bladder Incontinence: No Neuromuscular (Tone, Coordination, Reflexes) NT Sensory Vision: Wears Glasses Hearing: Functional Sensation Lower Extremities NT Transfers Therapy Code Descriptions/Definitions Functional [place] Measure: 0=Not Assessed/NA 4=Minimal Assistance 1=Total Assistance 5=Supervision or Setup 2=Maximal Assistance 6=Modified [place] 3=Moderate Assistance 7=Complete [place] Transfers (B, C, W/C) (FIM): 2 Scootin Supine to/from Sit: 3 Sit to/from Stand: 4 Gait Mode of Locomotion: Walk Anticipated Mode of Locomotion: Walk Gait (FIM): 1 Distance (FIM): 1=up to 49 ft Distance: 5' Gait Level of Assist: 4 Gait Persons Needed: 1 Gait Assistive Device: FWW Balance Sitting Static: Fair Sitting Dynamic: Poor Standing Static: Fair Standing Dynamic: Fair Assessment/Needs Pt required mod A from supine/sit, max A for scooting on EOB. Pt required min A- CGA while sitting EOB and nurse give pt medication. Pt was able to perform sit<> stand with min A needing the most help with initiation of transfer. Pt amb with FWW 5' from bed to recliner. Pt in recliner with all needs met. Pt requires extended time to perform activities. Rehab Potential: Fair Post Rehab Potential-Barriers: co-morbidities PT Short Term Goals Short Term Goals Time Frame: May 07, 2018 Transfers (B,C,W/C) (FIM): 4 Gait (FIM): 2 Distance (FIM): 5=694-83 ft Gait Distance Comment: 50' Gait Level of Assist: 4 Gait Assistive Device: FWW PT Plan Problem List Problem List: Activity Tolerance, Functional Strength, Safety, Balance, Gait, Transfer, Bed Mobility, ROM Treatment/Plan Treatment Plan: Continue Plan of Care Treatment Plan: Bed Mobility, Education, Functional Activity Chas, Functional Strength, Gait, Safety, Therapeutic Exercise, Transfers Treatment Duration: May 07, 2018 Frequency: 6 times per week Estimated Hrs Per Day: .25 hour per day Patient and/or Family Agrees t: Yes Safety Risks/Education Patient Education: Gait Training, Transfer Techniques, Correct Positioning, Safety Issues Teaching Recipient: Patient Teaching Methods: Demonstration, Discussion Discharge Recommendations Therapy D/C Recommendations: Assisted Living, [facility] Placement, Longterm (TCU/NH) Equpiment Recommendations-D/C: Front Wheeled Walker Time/GCodes Time In: 910 Time Out: 926 Total Billed Treatment Time: 16 Total Billed Treatment 1 visit EVL 16 min EMMANUEL GREENE PT Apr 30, 2018 10:10
--- NOTE | 2018-04-30 11:30 | NUR ---
CM/SS, respond to consult. Visited with patient and her DIL/Marisa Lezama who indicate they would like a referral sent to [facility] and then [place] if [facility] can not accept. Referral completed with [facility], await confirmation of acceptance. CARE Assessment pending. Family had been pursuing a new living arrangement for patient at [facility]; however, this acute onset of illness has rendered patient more appropriate for a longterm environment until recuperated.
[2018-04-30 12:00] VITALS: BP 95/54
[2018-04-30] MEDS ORDERED: ATEN25TA PO (12:15)
[2018-04-30] MEDS ORDERED: ERGO50006 PO (12:15)
[2018-04-30] MEDS ORDERED: MULT1TAB69 PO (12:15)
[2018-04-30] MEDS ORDERED: TAMO20TA2 PO (12:15)
[2018-04-30] MEDS ORDERED: METO5TAB2 PO (12:17)
--- NOTE | 2018-04-30 12:19 | NUR ---
WENT OVER THE EXT MED HX WITH THE PATIENT. SHE VERIFIED HOW SHE TAKES HER MEDS TO THE BEST OF HER ABILITY. SHE STATES SHE DOES NOT HAVE ANYTHING THAT SHE TAKES PRN AND SHE FILLS HER PILL BOX WEEKLY WITH WHATEVER THE DIRECTIONS ON HER BOTTLES STATE. SHE STATES SHE TAKES A [employer] DAILY OTC.
--- NOTE | 2018-04-30 12:49 | NUR ---
CM/SS, patient has been accepted for new skilled admission to [facility] when medically stable. CARE Assessment pending.
--- NOTE | 2018-04-30 15:37 | Occupational Therapy Eval ---
OT Evaluation-General/PLF Medical Diagnosis Admission Date Apr 28, 2018 at 17:42 Medical Diagnosis: Pneumonia Onset Date: Apr 28, 2018 Therapy Diagnosis Therapy Diagnosis: weakness Height/Weight Height (Feet): 5 Height (Inches): 3.00 Weight (Pounds): 118 Weight (Ounces): 8.0 Precautions Precautions/Isolations: Fall Prevention, Standard Precautions Safety Interventions: Bed Exit Alarm Weight Bear Status Weight Bearing Restriction: Full Weight Bearing Location Restriction: L LE, R LE Referral Physician: Dr. Conte Referral Reason: Activity Tolerance, Self Care, Evaluation/Treatment Medical History Pertinent Medical History: Atrial Fib, Arthritis, Dementia, GERD Reviewed History: Yes Social History Home: Single Level Current Living Status: Alone Entry Into Home: Level Entry ADL-Prior Level of Function Therapy Code Descriptions/Definitions Functional [place] Measure: 0=Not Assessed/NA 4=Minimal Assistance 1=Total Assistance 5=Supervision or Setup 2=Maximal Assistance 6=Modified [place] 3=Moderate Assistance 7=Complete [place] Therapy Quality Codes: 6 Independent with activity with or without an assistive device 5 Patient requires set up or clean up by helper. Patient completes activity by themselves 4 Supervision or touching assist (CGA). D[place]line provide cues , steadying assist 3 The helper provides less than half the effort to complete the activity 2 The helper provides more than half the effort to complete the activity 1 Dependent. The helper does all the effort to complete an activity 7 Patient refused to complete or attempt activity 9 The patient did not perform the activity before the current illness or injury 88 Not attempted due to Medical conditions or safety concerns Functional Abilities and Goals: Independent: Patient completed the activities by him/herself, with or without an assistive device, with no assistance from a helper. Needed Some Help: Patient needed partial assistance from another person to complete activities. Dependent: A helper completed the activities for the patient. 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 Pt alert & cooperative . Agree for OT Eval & treat.. Pain Numeric Pain Scale: 6 Location: Soft Tissue, Lower Location Body Site: Back Pain Description: Ache, Throbbing Mental Status/Objective Patient Orientation: Person, Place, Time, Eyes Open, Situation, Normal For Age Attachments: Central Line, Oxygen Current Glasses/Contacts: Yes Hearing Aids: No Hand Dominance: Right ADL-Treatment ADL-Current Pt been seen for OT assessment, Pt needs max A in supne to sit in bed, Max A x2 sit to stand at bed side. Mod A in grooming activity & Max A in dressing , MS in BUE -4/5 grossly graded. Mild stiffness in both shoulder. Therapy Code Descriptions/Definitions Functional [place] Measure: 0=Not Assessed/NA 4=Minimal Assistance 1=Total Assistance 5=Supervision or Setup 2=Maximal Assistance 6=Modified [place] 3=Moderate Assistance 7=Complete [place] Therapy Quality Codes: 6 Independent with activity with or without an assistive device 5 Patient requires set up or clean up by helper. Patient completes activity by themselves 4 Supervision or touching assist (CGA). [place]line provide cues , steadying assist 3 The helper provides less than half the effort to complete the activity 2 The helper provides more than half the effort to complete the activity 1 Dependent. The helper does all the effort to complete an activity 7 Patient refused to complete or attempt activity 9 The patient did not perform the activity before the current illness or injury 88 Not attempted due to Medical conditions or safety concerns Eating (FIM): 5 Grooming (FIM): 3 Bathing (FIM): 0 Upper Body Dressing (FIM): 2 Lower Body Dressing (FIM): 1 Toileting (FIM): 2 Transfers (B, C, W/C) (FIM): 1 Toilet/Commode Transfer (FIM): 1 Tub Transfer (FIM): 0 Shower Transfer (FIM): 0 Education OT Patient Education: Correct positioning, Energy conservation, Safety issues Teaching Recipient: Patient Teaching Methods: Demonstration Response to Teaching: Verbalize Understanding OT Short Term Goals Short Term Goals Time Frame: May 14, 2018 Eating(FIM): 7 Grooming(FIM): 6 Upper Body Dressing(FIM): 4 Lower Body Dressing(FIM): 3 Toileting(FIM): 4 Transfers (B,C,W/C) (FIM): 3 Toilet/Commode Transfer(FIM): 3 Shower Transfer(FIM): 3 Additional Short Term Goals: 1-Demonstrate ADL Tasks, 2-Verbalize Understanding , 3-ImproveStrength/Chas 1=Demonstrate adherence to instructed precautions during ADL tasks. 2=Patient will verbalize/demonstrate understanding of assistive devices/ modifications for ADL. 3=Patient will improve strength/tolerance for activity to enable patient to perform ADL's. OT Skilled Nursing Goals Skilled Nursing Goals Time Frame: May 28, 2018 Eating (FIM): 7 Grooming(FIM): 6 Bathing(FIM): 6 Bathing Location: L Arm, R Arm, L Upper Leg, R Upper Leg, L Lower Leg ( including foot), R Lower Leg (including foot), Chest, Abdomen, Buttocks, Perineal Area Upper Body Dressing(FIM): 6 Lower Body Dressing(FIM): 5 Toileting(FIM): 6 Transfers (B,C,W/C) (FIM): 6 Toilet/Commode Transfer(FIM): 6 Shower Transfer(FIM): 6 Additional Goals: 1-Demonstrate ADL Tasks, 2-Verbalize Understanding, 3- ImproveStrength/Chas 1=Demonstrate adherence to instructed precautions during ADL tasks. 2=Patient will verbalize/demonstrate understanding of assistive devices/ modifications for ADL. 3=Patient will improve strength/tolerance for activity to enable patient to perform ADL's. OT Education/Plan Problem List/Assessment Assessment: Decreased Activ Tolerance, Decreased Safety Aware, Decreased UE Strength, Dependent Transfers, Impaired Bed Mobility, Impaired Cognition, Impaired Funct Balance, Impaired Self-Care Skills, Restricted Funct UE ROM Discharge Recommendations Plan/Recommendations: Continue POC Therapy D/C Recommendations: Prison (TCU/NH) Equpiment Recommendations-D/C: Extended Bath Bench, Extended Shower Sprayer, Lard Maker Patient/Family Goals To return home with family Independently with AD. Treatment Plan/Plan of Care Treatment,Training & Education: Yes Patient would benefit from OT for education, treatment and training to promote independence in ADL's, mobility, safety and/or upper extremity function for ADL' s. Plan of Care: ADL Retraining, Caregiver Training, Cognitive Retraining, UE Funct Exercise/Act, UE Neuromus Re-Ed/Coord Treatment Duration: May 28, 2018 Frequency: 5 times per week Estimated Hrs Per Day: .25 hour per day Agreement: Yes Rehab Potential: Fair Time/GCodes Start Time: 13:40 Stop Time: 14:08 Total Time Billed (hr/min): 28 Billed Treatment Time 1,EVM 18 min, FA 10 min . Total 28 min. ISSA BENDER OT Apr 30, 2018 15:37
--- NOTE | 2018-04-30 15:57 | ST Dysphagia Evaluation ---
Speech Evaluation-General Medical Diagnosis Pneumonia Onset Date: Apr 28, 2018 Therapy Diagnosis Therapy Diagnosis: Oropharyngeal Dysphagia Precautions Precautions/Isolations: Fall Prevention, Standard Precautions Medical History Pertinent Medical History: Atrial Fib, Arthritis, Dementia, GERD Reviewed History: Yes Social History Current Living Status: Alone Speech PLF/Current-Dysphagia Prior Level of Function Patient lived at home alone where she was independent with most of her daily needs. Prior to this hospitalization the patient was preparing to move to [place]. Subjective Patient was pleasant and cooperative with bedside dysphagia evaluation. Cognitive Status Patient Orientation: Person, Confused, Place Oral Motor Skills Dentition: Natural Current Food Consistancy: Regular, Thin Liquids Ability to Follow Directions: Good Face Facial Symmetry: Symmetrical Oral-Facial Assessment Oral-Facial Dentition: Normal Smile: Normal Lingual Protrusion: Normal Lingual ROM: Normal Volitional Dry Swallow: Yes Voluntary Cough: Yes Productive Cough: No Productive Throat Clear: No Dysphagia Evaluation Consistencies Presented: Regular, Thin Liquid, Mechanical Soft, Pureed Patient takes her time eating with all consistencies Funct. Velo/Pharyngeal Symptom: Clears Throat Dietary Recommendations: Regular Liquid Recommendations: Thin Swallowing Precautions: Alternate Liquids/Solids, Double Swallow, Liquids from Straw, Small Bites and Sips, Sitting Upright 90 Degrees, Sitting 90 Degrees 30 Post Intake Dysphagia Evaluation Summary Patient is a pleasant 87 year old female who was referred for a Bedside Dysphagia Evaluation this afternoon following a choking incident this am. Patient was presented puree, mechanical soft, regular and thin liquids without difficulty. Patient takes her drinks via straw with small sips. Her food intake is with small bites. She is noted to eat and drink slowly which is appropriate. Patient's nurse was notified to continue with current diet level of regular with thin liquids. Barriers to Learning Patient has moderate dementia. Speech Short Term Goals Short Term Goals Short Term Goals 1) Patient will tolerate least restrictive diet level without s/s of aspiration at 80% or greater. 2) Patient will utilize compensatory strategies for safe oral intake with 80% or greater and minimal verbal cues. Speech Group Home Goals Industrial Arts Teacher Goals Patient will maintain adequate nutrition/hydration via safe effective swallow function. Speech-Plan Patient/Family Goals Patient/Family Goals: Patient will most likely go to SNF until she is able to go to [place] as planned. Treatment Plan Speech Therapy Treatment Plan: Continue Plan of Care Patient is expected to improve with skilled services. Treatment Duration: May 03, 2018 Frequency: 3 times per week Estimated Hrs Per Day: .25 hour per day Rehab Potential: Fair Barriers to Learning: Patient has moderate dementia. Pt/Family Agrees to Plan: Yes Safety Risks/Education Teaching Recipient: Patient Teaching Methods: Discussion Response to Teaching: Verbalize Understanding Education Topics Provided: Safety of oral intake. Time Speech Therapy Time In: 15:30 Speech Therapy Time Out: 15:45 Total Billed Time: 15 Billed Treatment Time [address] Apr 30, 2018 15:57
[2018-04-30 16:16] VITALS: BP 116/59
--- NOTE | 2018-04-30 17:03 | NUR ---
APPEARS SOA. SATS 88% ON 3L N/C. INCREASED TO 5L N/C BY RT. RT SUCTIONED.
[2018-04-30] MEDS: AZITHROMYCIN 250 MG TAB (ZITHROMAX) PO SCH (18:16)
[2018-04-30] MEDS: cefTRIAXone FOR IV USE 1,000 MG in WATER (STERILE) FOR INJECTION 10 ML IV SCH (18:17)
[2018-04-30] MEDS: ENOXAPARIN 40 MG/0.4 ML (LOVENOX) SYR SC SCH (18:19)
[2018-04-30 19:14] VITALS: BP 154/85
--- NOTE | 2018-04-30 19:29 | Progress Note (SOAP) ---
Subjective Date Seen by a Provider: Apr 30, 2018 Time Seen by a Provider: 12:20 Subjective/Events-last exam Fwup pneumonia, elevated CPK--rhabdomyolysis, Hypertension, GERD, Dementia. Nursing concerned she may be aspirating as she choked on drinking water through a straw. Was groggy this morning as well so concern about being too sedated with the amitriptylene. Focused Exam Lactate Level 04/28/18 19:54: Lactic Acid Level 1.65 Objective Exam Vital Signs Date Time Temp Pulse Resp B/P (MAP) Pulse Ox O2 Delivery O2 Flow Rate FiO2 04/30/18 19:14 99.8 101 22 154/85 (108) 91 Nasal Cannula 5.00 04/30/18 16:16 99.4 86 22 116/59 (78) 91 Nasal Cannula 3.00 04/30/18 15:37 95 Nasal Cannula 3.00 04/30/18 12:00 98.2 110 22 95/54 (68) 95 Nasal Cannula 3.00 04/30/18 09:50 93 Nasal Cannula 3.00 04/30/18 08:00 98.7 72 22 115/70 (85) 91 Nasal Cannula 3.00 04/30/18 08:00 Nasal Cannula 3.00 04/30/18 04:00 98.4 92 28 153/86 (108) 92 Nasal Cannula 3.00 04/30/18 03:37 91 Nasal Cannula 3.00 04/30/18 00:00 97.8 75 22 100/65 (77) 99 Nasal Cannula 3.00 04/29/18 20:00 98.0 86 26 112/66 (81) 93 Nasal Cannula 3.00 04/29/18 19:30 Room Air I & O 04/30/18 06:59 Intake Total 2220 ml Balance 2220 ml Capillary Refill : Less Than 3 Seconds General Appearance: No Apparent Distress Neck: Supple Respiratory: Decreased Breath Sounds, Rhonci Cardiovascular: Regular Rate, Rhythm Gastrointestinal: normal bowel sounds, non tender, soft Extremity: Non Tender, No Calf Tenderness, No Pedal Edema Neurologic/Psychiatric: Alert Skin: Warm/Dry Results Lab Laboratory Tests 04/30/18 03:55: Urine Color YELLOW, Urine Clarity CLEAR, Urine pH 5, Urine Specific [place] 1.020, Urine Protein 1+H, Urine Glucose (UA) 1+H, Urine Ketones NEGATIVE, Urine Nitrite NEGATIVE, Urine Bilirubin NEGATIVE, Urine Urobilinogen NORMAL, Urine Leukocyte Esterase NEGATIVE, Urine RBC (Auto) 1+H, Urine RBC RARE, Urine WBC RARE, Urine Squamous Epithelial Cells 2-5, Urine Crystals NONE, Urine Bacteria TRACE, Urine Casts NONE, Urine Mucus SMALLH, Urine Culture Indicated NO 04/30/18 05:34: Sodium Level 135, Potassium Level 4.1, Chloride Level 104, Carbon Dioxide Level 24, Anion Gap 7, Blood Urea Nitrogen 8, Creatinine 0.83, Estimat Glomerular Filtration Rate > 60, BUN/Creatinine Ratio 10, Glucose Level 109H, Calcium Level 8.0L, Total Creatine Kinase 2507H Microbiology 04/28/18 Blood Culture - Preliminary, Resulted No growth 04/29/18 Gram Stain, Resulted Pending 04/29/18 Sputum Culture - Preliminary, Resulted Usual upper respiratory makenzie Assessment/Plan Assessment/Plan Assess & Plan/Chief Complaint 1. Acute Community Acquired Pneumonia--On Rocephin/Zithromax and SVNs 2. Elevated CPK--probable rhabdomyolysis, will hydrate and repeat level 3. Choking with Possible Aspiration--ST for swallow evaluation 4. Hypertension--restarted on home meds 5. GERD--start IV protonix 6. Alzheimer's Dementia--home meds resumed Clinical Quality Measures DVT/VTE Risk/Contraindication: Risk Factor Score Per Nursin RFS Level Per Nursing on Admit: 4+=Very High NETTE MAOY DO Apr 30, 2018 19:29
--- NOTE | 2018-04-30 19:40 | NUR ---
UPON ASSESSMENT PT IS SOB O2SAT AT 89% ON 5 LITER NC. PT IS WHEEZING BILAT DURING AUSCULTATION. RT CALLED AND IS AT BEDSIDE. RT RECOMMENDS BIPAP. DR. MAYO CALLED AND UPDATED ON PT STATUS. ORDER TO GIVE SOLU-MEDROL 125MG IV ONCE, LASIX 40MG IV ONCE, EKG, AND TROPONIN LEVEL. PT AT THIS TIME IS NOT TOLERATING BIPAP. PT STATES SHE WANTS TO TAKE MASK OFF. RT AND THIS RN REINFORCE THE IMPORTANCE OF LEAVING MASK ON. PT STATES UNDERSTANDING.
[2018-04-30] MEDS ORDERED: methylPREDNISolone 125 MG (Solu-MEDROL) VIAL ONE (19:59)
[2018-04-30] MEDS ORDERED: methylPREDNISolone 125 MG (Solu-MEDROL) VIAL IVP NR (20:00)
[2018-04-30] MEDS ORDERED: FUROSEMIDE 40 MG/4 ML INJ (LASIX) IVP NR (20:00)
[2018-04-30] MEDS: 1/2 NS IV SOLUTION 1,000 ML IV SCH (20:06)
--- NOTE | 2018-04-30 20:30 | NUR ---
DR. MAYO CALLED AND INFORMED OF TROPONIN LEVEL AND EKG. DR ORDER TO DO 2D ECHO IN AM. THIS RN ALSO INFORMED DRDarlin OF PT NOT TOLERATING BIPAP WELL. ORDER TO GIVEN ATIVAN 0.5MG IV Q6HR PRN AND ORDER MAYBE REPEATED X1 BEFORE 6HR FOR A TOTAL OF 1MG IF PT CONTINUES TO NOT TOLERATE.
--- NOTE | 2018-04-30 20:40 | NUR ---
THIS RN TALKED TO BOTH SON AND DAUGHTER OF PT. BOTH UPDATED ON PT STATUS. BOTH STATED UNDERSTANDING.
[2018-04-30] MEDS ORDERED: LORazepam INJ 2 MG/ML (ATIVAN) VIAL ONE (21:06)
[2018-04-30] MEDS: LORazepam INJ 2 MG/ML (ATIVAN) VIAL IVP PRN (21:14)
[2018-04-30] MEDS: ATENOLOL 50 MG (TENORMIN) TAB PO SCH (21:15)
[2018-04-30] MEDS ORDERED: LORazepam INJ 2 MG/ML (ATIVAN) VIAL IVP ONE (23:15)
[2018-05-01] VITALS: BP 114/76
[2018-05-01] MEDS: RT-ALBUTEROL SULF 2.5 MG/3 ML PRE-MIX VIAL INH SCH ×6 (01:10→21:30)
[2018-05-01 03:30] VITALS: BP 103/67
[2018-05-01 06:02] LABS: BASOPHILS % (AUTO) 0 % (0-10); EOSINOPHILS % (AUTO) 0 % (0-10); HEMATOCRIT 33 % (35-52); HEMOGLOBIN 11.5 G/DL (11.5-16.0); LYMPHOCYTES % (AUTO) 16 % (12-44); MEAN CORPUSCULAR HEMOGLOBIN 32 PG (25-34); MEAN CORPUSCULAR HGB CONC 35 G/DL (32-36); MEAN CORPUSCULAR VOLUME 92 FL (80-99); MEAN PLATELET VOLUME 10.7 FL (7.4-10.4); MONOCYTES # (AUTO) 0.3 X 10^3 (0.0-1.0); MONOCYTES % (AUTO) 4 % (0-12); NEUTROPHILS # (AUTO) 4.9 X 10^3 (1.8-7.8); NEUTROPHILS % (AUTO) 80 % (42-75); PLATELET COUNT 126 10^3/uL (130-400); RED CELL DISTRIBUTION WIDTH 14.6 % (10.0-14.5); WHITE BLOOD COUNT 6.2 10^3/uL (4.3-11.0)
[2018-05-01 06:23] LABS: BUN/CREATININE RATIO 14; CALCIUM 7.6 MG/DL (8.5-10.1); CARBON DIOXIDE 22 MMOL/L (21-32); CHLORIDE 100 MMOL/L (98-107); CREATINE KINASE 2436 U/L (29-168); CREATININE SERUM 0.87 MG/DL (0.60-1.30); GFR ESTIMATED > 60; GLUCOSE 162 MG/DL (70-105); POTASSIUM 3.6 MMOL/L (3.6-5.0); SODIUM 134 MMOL/L (135-145)
[2018-05-01 08:02] VITALS: BP 120/75
--- NOTE | 2018-05-01 08:50 | NUR ---
DR CHACON IS ON THE FLOOR. HE WANTS TO LET HIS MOM SLEEP. IF SHE STARTS TO WAKE UP, TRY TO TAKE HER OFF THE BIPAP AND TRY TO GIVE HER MORNING MEDICATIONS. IT IS OKAY TO HOLD THEM FOR NOW.
[2018-05-01] MEDS: 1/2 NS IV SOLUTION 1,000 ML IV SCH ×2 (09:01→21:14)
[2018-05-01] MEDS: RIVASTIGMINE 1.5 MG (EXELON) CAP PO SCH (10:39)
[2018-05-01] MEDS: MEMANTINE 5 MG (NAMENDA) TABLET PO SCH ×2 (10:39→21:10)
[2018-05-01] MEDS: PANTOPRAZOLE 40 MG (PROTONIX) TAB PO SCH ×2 (10:39→21:10)
[2018-05-01 12:00] VITALS: BP 112/57
--- NOTE | 2018-05-01 12:03 | Occupational Ther Daily Note ---
OT Current Status-Daily Note Subjective Pt resting in recliner, alert & in a cheerful mood . Has O2 on 5 liters continuous. Pt agree for OT Treatment. Pt states that " I am fine today." Pain Numeric Pain Scale: 4 Location: Lower Location Body Site: Back Mental Status/Objective Patient Orientation: Person, Place, Time, Situation, Normal For Age Therapy Code Descriptions/Definitions Functional [place] Measure: 0=Not Assessed/NA 4=Minimal Assistance 1=Total Assistance 5=Supervision or Setup 2=Maximal Assistance 6=Modified [place] 3=Moderate Assistance 7=Complete [place] Attachments: Central Line, Oxygen, Saline Lock ADL-Treatment Pt participated in grooming, sponge-bath , bed mobility & func transfers & strengthening ex to BUE . Pt needs min A in sponge bath to UB & LB . Mod A in supine to sit in bed & mod A in func transfers. Pt completed 20 reps x 2 sets x 2 lb wts flex/ext of both elbow . Shoulder flexion needs min A to raise with 2 lbs. , 30 reps with each arm with red theraband & 30 reps using hand gripper to strengthen hand burlap man in both hands. Pt doing good comparing yesterday. Eating (FIM): 5 Grooming (FIM): 4 Bathing (FIM): 3 (Pt need mod A in sponge bath.) Bathing Location: L Arm, R Arm, L Upper Leg, R Upper Leg, L Lower Leg ( including foot), R Lower Leg (including foot) Upper Body (FIM): 3 Lower Body Dressing (FIM): 0 Toileting (FIM): 0 Transfers (B, C, W/C) (FIM): 3 Toilet/Commode Transfer (FIM): 3 Tub Transfer(FIM): 0 Shower Transfer(FIM): 0 Education OT Patient Education: Correct positioning Teaching Recipient: Patient Teaching Methods: Demonstration Response to Teaching: Verbalize Understanding OT Short Term Goals Short Term Goals Time Frame: May 14, 2018 Eating(FIM): 7 Grooming(FIM): 6 Upper Body Dressing(FIM): 4 Lower Body Dressing(FIM): 3 Toileting(FIM): 4 Transfers (B,C,W/C) (FIM): 3 Toilet/Commode Transfer(FIM): 3 Shower Transfer(FIM): 3 Additional Short Term Goals: 1-Demonstrate ADL Tasks, 2-Verbalize Understanding , 3-ImproveStrength/Chas 1=Demonstrate adherence to instructed precautions during ADL tasks. 2=Patient will verbalize/demonstrate understanding of assistive devices/ modifications for ADL. 3=Patient will improve strength/tolerance for activity to enable patient to perform ADL's. OT Agriscience Teacher Goals Agriscience Teacher Goals Time Frame: May 28, 2018 Eating (FIM): 7 Grooming(FIM): 6 Bathing(FIM): 6 Bathing Location: L Arm, R Arm, L Upper Leg, R Upper Leg, L Lower Leg ( including foot), R Lower Leg (including foot), Chest, Abdomen, Buttocks, Perineal Area Upper Body Dressing(FIM): 6 Lower Body Dressing(FIM): 5 Toileting(FIM): 6 Transfers (B,C,W/C) (FIM): 6 Toilet/Commode Transfer(FIM): 6 Shower Transfer(FIM): 6 Additional Goals: 1-Demonstrate ADL Tasks, 2-Verbalize Understanding, 3- ImproveStrength/Chas 1=Demonstrate adherence to instructed precautions during ADL tasks. 2=Patient will verbalize/demonstrate understanding of assistive devices/ modifications for ADL. 3=Patient will improve strength/tolerance for activity to enable patient to perform ADL's. OT Education/Plan Problem List/Assessment Assessment: Decreased Activ Tolerance, Decreased Safety Aware, Decreased UE Strength, Dependent Transfers, Impaired Bed Mobility, Impaired Funct Balance, Impaired Self-Care Skills Discharge Recommendations Plan/Recommendations: Continue POC Therapy D/C Recommendations: Assisted Living Equpiment Recommendations-D/C: Extended Bath Bench, Extended Shower Sprayer, Singeing Torch Operator Patient/Family Goals To return home Independently with AD. Treatment Plan/Plan of Care Treatment,Training & Education: Yes Patient would benefit from OT for education, treatment and training to promote independence in ADL's, mobility, safety and/or upper extremity function for ADL' s. Plan of Care: ADL Retraining, Caregiver Training, Cognitive Retraining, UE Funct Exercise/Act, UE Neuromus Re-Ed/Coord Treatment Duration: May 28, 2018 Frequency: 5 times per week Estimated Hrs Per Day: .25 hour per day Agreement: Yes Rehab Potential: Fair Time/GCodes Start Time: 11:00 Stop Time: 11:28 Total Time Billed (hr/min): 28 Billed Treatment Time 1, ADL 17 min, FA 11 min. Total 28 min. MAHURE,ISSA OT May 01, 2018 12:03
[2018-05-01] MEDS ORDERED: methylPREDNISolone 40 MG/ML (Solu-MEDROL) VIAL IV NR (12:30)
--- NOTE | 2018-05-01 13:05 | NUR ---
CM/SS. Updated MLP/Heena of patient's continued acute status. Following for skilled care when medically stable for discharge.
--- NOTE | 2018-05-01 13:32 | Diagnostic Imaging Report ---
INDICATION: Followup pneumonia. Possible aspiration. COMPARISON: 04/28/2018 FINDINGS: Frontal and lateral views of the chest demonstrate normal heart size and pulmonary vascularity. The lungs are clear. There are no signs of infiltrate, pleural effusions or pneumothoraces. The visualized osseous structures show chronic vertebra plana of the T12 vertebral body. There has been interval compression wedge-shaped deformity of the T9 vertebral body when compared to 01/03/2017. IMPRESSION: 1. No acute process. No signs of infiltrates, effusions or pneumothoraces. 2. Multiple compression deformities of the lower thoracic spine as described above. If there is concern for acute fracture, MRI is recommended. Dictated by: Dictated on workstation # [id number]
--- NOTE | 2018-05-01 13:44 | Physical Therapy Daily Note ---
PT Daily Note-Current Subjective Pt was just returned to room from x-ray. Pt agrees to PT and requests to use commode. Mental Status Patient Orientation: Person Attachments: Oxygen (5L), IV Transfers Therapy Code Descriptions/Definitions Functional [place] Measure: 0=Not Assessed/NA 4=Minimal Assistance 1=Total Assistance 5=Supervision or Setup 2=Maximal Assistance 6=Modified [place] 3=Moderate Assistance 7=Complete [place] Therapy Quality Codes: 6 Independent with activity with or without an assistive device 5 Patient requires set up or clean up by helper. Patient completes activity by themselves 4 Supervision or touching assist (CGA). [place] provide cues , steadying assist 3 The helper provides less than half the effort to complete the activity 2 The helper provides more than half the effort to complete the activity 1 Dependent. The helper does all the effort to complete an activity 7 Patient refused to complete or attempt activity 9 The patient did not perform the activity before the current illness or injury 88 Not attempted due to Medical conditions or safety concerns Transfers (B, C, W/C) (FIM): 3 Sit to/from Stand: 3 Weight Bearing Right Lower Extremity: Right Full Weight Bearing Left Lower Extremity: Left Full Weight Bearing Gait Training Gait (FIM): 1 Distance (FIM): 1=up to 49 ft Distance: 5' Gait Level of Assist: 4 Gait Persons Needed: 1 Gait Assistive Device: FWW Exercises Seated Therapy Exercises: Ankle pumps, Long arc quads, Hip flexion Seated Reps: 10 Assessment Current Status: Fair Progress Pt was able to transfer mod A from recliner to FWW. Pt amb 5' to commode using FWW and min A. Pt requires VC and manual cues for safety of transfers. Pt required mod A for sit<>stand from commode to FWW. Pt required assist with bathroom skills. Pt amb back to recliner with FWW. Pt performed seated LE ex and has all needs met. PT Short Term Goals Short Term Goals Time Frame: May 07, 2018 Transfers (B,C,W/C) (FIM): 3 Gait (FIM): 2 Distance (FIM): 8=784-32 ft Gait Distance Comment: 50' Gait Level of Assist: 4 Gait Assistive Device: FWW PT Plan Problem List Problem List: Activity Tolerance, Functional Strength, Safety, Balance, Gait, Transfer, Bed Mobility, ROM Treatment/Plan Treatment Plan: Continue Plan of Care Treatment Plan: Bed Mobility, Education, Functional Activity Chas, Functional Strength, Gait, Safety, Therapeutic Exercise, Transfers Treatment Duration: May 07, 2018 Frequency: 6 times per week Estimated Hrs Per Day: .25 hour per day Patient and/or Family Agrees t: Yes Time/GCodes Time In: 1310 Time Out: 1325 Total Billed Treatment Time: 15 Total Billed Treatment 1 visit FA 15 min EMMANUEL GREENE PT May 01, 2018 13:44
[2018-05-01 15:41] VITALS: BP 102/56
[2018-05-01] MEDS: methylPREDNISolone 40 MG/ML (Solu-MEDROL) VIAL IV SCH ×2 (17:44→23:34)
[2018-05-01] MEDS: AZITHROMYCIN 250 MG TAB (ZITHROMAX) PO SCH (17:44)
[2018-05-01] MEDS: cefTRIAXone FOR IV USE 1,000 MG in WATER (STERILE) FOR INJECTION 10 ML IV SCH (17:44)
[2018-05-01] MEDS: ENOXAPARIN 40 MG/0.4 ML (LOVENOX) SYR SC SCH (17:45)
--- NOTE | 2018-05-01 19:18 | Progress Note (SOAP) ---
Subjective Date Seen by a Provider: May 01, 2018 Time Seen by a Provider: 18:49 Subjective/Events-last exam Fwup pneumonia, elevated CPK--rhabdomyolysis, Hypertension, GERD, Dementia. On BIPAP overnight but up in chair on NC now. Focused Exam Lactate Level 04/28/18 19:54: Lactic Acid Level 1.65 Objective Exam Vital Signs Date Time Temp Pulse Resp B/P (MAP) Pulse Ox O2 Delivery O2 Flow Rate FiO2 05/01/18 18:07 66 97 40 05/01/18 18:07 97 Nasal Cannula 5.00 05/01/18 15:41 98.1 68 20 102/56 (71) 92 Nasal Cannula 5.00 05/01/18 12:00 97.7 80 22 112/57 (75) 94 Nasal Cannula 5.00 05/01/18 08:02 97.7 99 25 120/75 (90) 98 NIV Bilevel 40.00 5.00 05/01/18 08:00 96 Nasal Cannula 5.00 05/01/18 06:50 84 25 98 40.00 05/01/18 04:05 88 25 97 40.00 05/01/18 03:30 97.9 87 29 103/67 (79) 98 NIV Bilevel 05/01/18 01:10 102 33 98 50.00 05/01/18 00:00 98.1 96 30 114/76 (89) 97 NIV Bilevel 04/30/18 21:38 96 33 99 50.00 04/30/18 20:00 Nasal Cannula 5.00 04/30/18 20:00 94 38 99 100.00 04/30/18 19:14 99.8 101 22 154/85 (108) 91 Nasal Cannula 5.00 I & O 05/01/18 07:00 Intake Total 1780 ml Output Total 200 ml Balance 1580 ml Capillary Refill : Less Than 3 Seconds General Appearance: No Apparent Distress Neck: Supple Respiratory: Crackles, Decreased Breath Sounds, Wheezing Cardiovascular: Regular Rate, Rhythm Gastrointestinal: normal bowel sounds, non tender, soft Extremity: Non Tender, No Calf Tenderness, No Pedal Edema Neurologic/Psychiatric: Alert Skin: Warm/Dry Results Lab Laboratory Tests 04/30/18 20:15: Troponin I 0.071H 05/01/18 05:25: White Blood Count 6.2, Red Blood Count 3.61L, Hemoglobin 11.5, Hematocrit 33L, Mean Corpuscular Volume 92, Mean Corpuscular Hemoglobin 32, Mean Corpuscular Hemoglobin Concent 35, Red Cell Distribution Width 14.6H, Platelet Count 126L, Mean Platelet Volume 10.7H, Neutrophils (%) (Auto) 80H, Lymphocytes (%) (Auto) 16, Monocytes (%) (Auto) 4, Eosinophils (%) (Auto) 0, Basophils (%) (Auto) 0, Neutrophils # (Auto) 4.9, Lymphocytes # (Auto) 1.0, Monocytes # (Auto) 0.3, Eosinophils # (Auto) 0.0, Basophils # (Auto) 0.0, Sodium Level 134L, Potassium Level 3.6, Chloride Level 100, Carbon Dioxide Level 22, Anion Gap 12, Blood Urea Nitrogen 12, Creatinine 0.87, Estimat Glomerular Filtration Rate > 60, BUN/ Creatinine Ratio 14, Glucose Level 162H, Calcium Level 7.6L, Total Creatine Kinase 2436H Microbiology 04/28/18 Blood Culture - Preliminary, Resulted No growth 04/29/18 Gram Stain - Final, Complete 04/29/18 Sputum Culture - Final, Complete Usual upper respiratory makenzie Assessment/Plan Assessment/Plan Assess & Plan/Chief Complaint 1. Acute Community Acquired Pneumonia--On Rocephin/Zithromax and SVNs, repeat CXR 2. Elevated CPK--probable rhabdomyolysis, will hydrate and repeat level 3. Choking with Possible Aspiration--swallow eval normal 4. Hypertension--restarted on home meds 5. GERD--on protonix 6. Alzheimer's Dementia--home meds resumed 7. RAD/Respiratory Distress--add solumedrol and guafenesin Clinical Quality Measures DVT/VTE Risk/Contraindication: Risk Factor Score Per Nursin RFS Level Per Nursing on Admit: 4+=Very High NETTE MAYO DO May 01, 2018 19:18
[2018-05-01 20:11] VITALS: BP 103/52
[2018-05-01] MEDS: ATENOLOL 50 MG (TENORMIN) TAB PO SCH (21:10)
[2018-05-01] MEDS: guaiFENesin (MUCINEX) 600 MG TAB PO SCH (21:10)
[2018-05-01] MEDS: LORazepam INJ 2 MG/ML (ATIVAN) VIAL IVP PRN (21:10)
[2018-05-02] VITALS: BP 102/58
[2018-05-02] MEDS: RT-ALBUTEROL SULF 2.5 MG/3 ML PRE-MIX VIAL INH SCH ×6 (01:17→21:57)
[2018-05-02 03:54] VITALS: BP 100/61
[2018-05-02] MEDS: methylPREDNISolone 40 MG/ML (Solu-MEDROL) VIAL IV SCH ×3 (06:14→17:52)
[2018-05-02] MEDS: MULTIVIT W/MINERALS TAB (THERAGRAN M) PO SCH (06:14)
[2018-05-02 07:36] VITALS: BP 108/56
[2018-05-02] MEDS: RIVASTIGMINE 1.5 MG (EXELON) CAP PO SCH (08:33)
[2018-05-02] MEDS: MEMANTINE 5 MG (NAMENDA) TABLET PO SCH ×2 (08:33→21:32)
[2018-05-02] MEDS: PANTOPRAZOLE 40 MG (PROTONIX) TAB PO SCH ×2 (08:33→21:32)
[2018-05-02] MEDS: 1/2 NS IV SOLUTION 1,000 ML IV SCH (08:36)
[2018-05-02] MEDS: guaiFENesin (MUCINEX) 600 MG TAB PO SCH ×2 (08:36→21:32)
[2018-05-02] MEDS: LORazepam INJ 2 MG/ML (ATIVAN) VIAL IVP PRN ×2 (10:40→21:43)
[2018-05-02 11:16] VITALS: BP 127/64
--- NOTE | 2018-05-02 12:04 | Physical Therapy Daily Note ---
PT Daily Note-Current Subjective Pt. in bed, head up , family at bedside. Pt. agrees to try exercise and activity as tolerated. As pt. begins to move for exercise , audible wheezing ensues. RT enters room. It is decided that pt. may tolerate PT rx better is she has a breathing Rx first. After assessing pt. RT asks that PT halt Rx as she feels pt. needs to go back on Bipap. Mental Status Patient Orientation: Person, Place Attachments: SCD's, Oxygen Transfers Therapy Code Descriptions/Definitions Functional [place] Measure: 0=Not Assessed/NA 4=Minimal Assistance 1=Total Assistance 5=Supervision or Setup 2=Maximal Assistance 6=Modified [place] 3=Moderate Assistance 7=Complete [place] Therapy Quality Codes: 6 Independent with activity with or without an assistive device 5 Patient requires set up or clean up by helper. Patient completes activity by themselves 4 Supervision or touching assist (CGA). [place] provide cues , steadying assist 3 The helper provides less than half the effort to complete the activity 2 The helper provides more than half the effort to complete the activity 1 Dependent. The helper does all the effort to complete an activity 7 Patient refused to complete or attempt activity 9 The patient did not perform the activity before the current illness or injury 88 Not attempted due to Medical conditions or safety concerns Weight Bearing Right Lower Extremity: Right Full Weight Bearing Left Lower Extremity: Left Full Weight Bearing Exercises Supine Ex: Ankle pumps, Quad Set, Glut sets, Heel Slides, Hip abd/add Supine Reps: 12 Assessment Current Status: Poor Progress wheezing and dyspnea ensued with exercise, exercise was discontinued, RT and nursing to manage pts status etc PT Short Term Goals Short Term Goals Time Frame: May 07, 2018 Transfers (B,C,W/C) (FIM): 3 Gait (FIM): 2 Distance (FIM): 0=764-96 ft Gait Distance Comment: 50' Gait Level of Assist: 4 Gait Assistive Device: FWW PT Plan Treatment/Plan Treatment Plan: Continue Plan of Care Treatment Plan: Bed Mobility, Education, Functional Activity Chas, Functional Strength, Gait, Safety, Therapeutic Exercise, Transfers Treatment Duration: May 07, 2018 Frequency: 6 times per week Estimated Hrs Per Day: .25 hour per day Patient and/or Family Agrees t: Yes Safety Risks/Education Patient Education: Disease Process, Safety Issues Teaching Recipient: Patient, Family Time/GCodes Time In: 1010 Time Out: 1025 Total Billed Treatment Time: 15 Total Billed Treatment 1,EX15m G Codes Necessary: No JHON HUTCHINSON WIRE WRAPPER MACHINE OPERATOR May 02, 2018 12:04
[2018-05-02] MEDS ORDERED: RECEIVED CONTRAST (Hold Metformin) IV SCH (13:15)
[2018-05-02] MEDS ORDERED: IOHEXOL 350 MG/ML 100 ML (OMNIPAQUE 350) VIAL IV ONE (13:15)
[2018-05-02] MEDS ORDERED: NS 100 ML (IVPB) BAG IV ONE (13:15)
--- NOTE | 2018-05-02 13:30 | Pulmonary Consultation ---
History of Present Illness History of Present Illness Date of Consultation 05/02/18 13:25 Date of Admission Allergies and Home Medications Allergies Coded Allergies: Penicillins (Unverified Allergy, Unknown, RASH, 08/13/14) morphine (Verified Allergy, Unknown, 12/08/08) Uncoded Allergies: SSRI (Allergy, Unknown, RAPID PULSE, BP INCREASE, 08/13/14) Home Medications Amitriptyline HCl 25 Mg Tablet, 25 MG PO HS, (Reported) Atenolol 25 Mg Tablet, 25 MG PO HS, (Reported) Ergocalciferol (Vitamin D2) 50,000 Unit Capsule, 50,000 UNITS PO Torres, (Reported) Memantine HCl 5 Mg Tablet, 5 MG PO BID, (Reported) Metoclopramide HCl 5 Mg Tablet, 5 MG PO TID, (Reported) Multivitamin 1 Each Tablet, 1 TAB PO DAILY, (Reported) Pantoprazole Sodium 40 Mg Tablet.dr, 40 MG PO BID, (Reported) Rivastigmine Tartrate 6 Mg Capsule, 6 MG PO DAILY, (Reported) Sucralfate 1 Gm Tablet, 1 GM PO ACHS, (Reported) Tamoxifen Citrate 20 Mg Tablet, 20 MG PO DAILY, (Reported) Past Qyfchlv-Dcmpdp-Gdaavo Hx Past Med/Social Hx: Reviewed Nursing Past Med/Soc Hx, Reviewed and Corrections made Patient Social History Alcohol Use: Denies Use Recreational Drug Use: No Smoking Status: Never a Smoker Recent Foreign Travel: No Contact w/Someone Who Travel: No Recent Infectious Disease Expo: No Recent Hopitalizations: No Immunizations Up To Date Date of Pneumonia Vaccine: Jan 06, 2011 Date of Influenza Vaccine: Jan 06, 2010 Seasonal Allergies Seasonal Allergies: No Past Medical History Surgeries: Yes Hysterectomy, Tonsillectomy Respiratory: No Currently Using CPAP: No Currently Using BIPAP: No Cardiac: Yes (PVC's, palpitations) Atrial Fibrillation Neurological: Yes Dementia Reproductive Disorders: No Sexually Transmitted Disease: No Genitourinary: No Gastrointestinal: Yes Gastroesophageal Reflux, Hepatitis Musculoskeletal: Yes Osteoporosis, Arthritis Endocrine: No HEENT: No Cancer: Yes (hx L breat cancer with lumpectomy) Breast, Lymphoma What Type of Treatment Did You: Chemotherapy, Radiation, Surgical Intervention Psychosocial: No Sleep Difficulties Integumentary: No Blood Disorders: No Family Medical History Patient reports no known family medical history. Sepsis Event Evaluation Height, Weight, BMI Height: 5'3.00" Weight: 118lbs. 8.0oz. 53.625699vz; 19.7 BMI Method: Exam Exam Vital Signs Date Time Temp Pulse Resp B/P (MAP) Pulse Ox O2 Delivery O2 Flow Rate FiO2 05/02/18 12:51 62 32 96 40.00 05/02/18 11:16 97.2 72 28 127/64 (85) 93 NIV Bilevel 05/02/18 10:38 78 36 91 40.00 05/02/18 10:21 88 Nasal Cannula 4.00 05/02/18 08:00 96 Nasal Cannula 5.00 05/02/18 07:36 97.5 75 21 108/56 (73) 93 High Flow N/C 5.00 05/02/18 06:18 91 Nasal Cannula 5.00 05/02/18 04:00 69 25 91 40.00 05/02/18 03:54 98.1 67 24 100/61 (74) 94 NIV Bilevel 05/02/18 01:17 72 25 92 40.00 05/02/18 00:00 97.9 71 21 102/58 (73) 96 NIV Bilevel 05/01/18 23:48 74 25 95 40.00 05/01/18 21:30 70 34 98 40.00 05/01/18 20:11 97.8 78 22 103/52 (69) 95 Nasal Cannula 5.00 05/01/18 20:00 Nasal Cannula 5.00 05/01/18 18:07 66 97 40 05/01/18 18:07 97 Nasal Cannula 5.00 05/01/18 15:41 98.1 68 20 102/56 (71) 92 Nasal Cannula 5.00 I & O 05/02/18 07:00 Intake Total 980 ml Output Total 700 ml Balance 280 ml Height & Weight Height: 5'3.00" Weight: 118lbs. 8.0oz. 53.566485nu; 19.7 BMI Method: General Appearance: No Apparent Distress HEENT: TMs Normal, Normal ENT Inspection Neck: Supple Respiratory: Crackles, Decreased Breath Sounds, Wheezing Cardiovascular: Regular Rate, Rhythm Gastrointestinal: normal bowel sounds, non tender, soft Extremity: Non Tender, No Calf Tenderness, No Pedal Edema Neurologic/Psychiatric: Alert Skin: Warm/Dry Results Lab Laboratory Tests 05/01/18 05:25 Assessment/Plan Assessment/Plan Community acquired pneumonia r/o aspiration -Swallow eval was normal -Rocephin and azithromycin -CXR reviewed -Check CT of chest Acute bronchitis with bilateral wheezing -solumedrol 40 IV Q6 -SVNS Hypoxia -Oxygen -Start Vapotherm CANDY AGUILAR DO May 02, 2018 13:30
--- NOTE | 2018-05-02 13:47 | NUR ---
CALLED CONSULT TO DR ARELLANO'S OFFICE.
--- NOTE | 2018-05-02 14:55 | Occupational Ther Daily Note ---
OT Current Status-Daily Note Subjective Pt in bed & her daughter attempting to help her sit upright in bed. P& daughter agree for OT . Therapist helped patient sitting upright in bed. Pain Numeric Pain Scale: 5-Moderate Pain Location: Left Location Body Site: Shoulder Pain Description: Throbbing Mental Status/Objective Patient Orientation: Person, Place, Time Therapy Code Descriptions/Definitions Functional [place] Measure: 0=Not Assessed/NA 4=Minimal Assistance 1=Total Assistance 5=Supervision or Setup 2=Maximal Assistance 6=Modified [place] 3=Moderate Assistance 7=Complete [place] Attachments: IV, Oxygen, SCD's ADL-Treatment Pt positioned upright in bed to prevent aspiration while drinking water. Pt participated in gentle passive ROM to both wrist, elbows, shoulders to prevent stiffness in joint & strengthening ex to BUE. Pt completed 20 reps using Red theraband . Pt had BiPaps & Pt still SOB.. Pt very tired & wanted to sleep. Eating (FIM): 7 Grooming (FIM): 5 Bathing (FIM): 0 Upper Body (FIM): 0 Lower Body Dressing (FIM): 0 Toileting (FIM): 0 Transfers (B, C, W/C) (FIM): 3 Toilet/Commode Transfer (FIM): 0 Tub Transfer(FIM): 0 Shower Transfer(FIM): 0 Education OT Patient Education: Correct positioning, Instructions to caregiver, Safety issues Teaching Recipient: Patient Teaching Methods: Demonstration Response to Teaching: Verbalize Understanding OT Short Term Goals Short Term Goals Time Frame: May 14, 2018 Eating(FIM): 7 Grooming(FIM): 6 Upper Body Dressing(FIM): 4 Lower Body Dressing(FIM): 3 Toileting(FIM): 4 Transfers (B,C,W/C) (FIM): 3 Toilet/Commode Transfer(FIM): 3 Shower Transfer(FIM): 3 Additional Short Term Goals: 1-Demonstrate ADL Tasks, 2-Verbalize Understanding , 3-ImproveStrength/Chas 1=Demonstrate adherence to instructed precautions during ADL tasks. 2=Patient will verbalize/demonstrate understanding of assistive devices/ modifications for ADL. 3=Patient will improve strength/tolerance for activity to enable patient to perform ADL's. OT Door Puller Goals Door Puller Goals Time Frame: May 28, 2018 Eating (FIM): 7 Grooming(FIM): 6 Bathing(FIM): 6 Bathing Location: L Arm, R Arm, L Upper Leg, R Upper Leg, L Lower Leg ( including foot), R Lower Leg (including foot), Chest, Abdomen, Buttocks, Perineal Area Upper Body Dressing(FIM): 6 Lower Body Dressing(FIM): 5 Toileting(FIM): 6 Transfers (B,C,W/C) (FIM): 6 Toilet/Commode Transfer(FIM): 6 Shower Transfer(FIM): 6 Additional Goals: 1-Demonstrate ADL Tasks, 2-Verbalize Understanding, 3- ImproveStrength/Chas 1=Demonstrate adherence to instructed precautions during ADL tasks. 2=Patient will verbalize/demonstrate understanding of assistive devices/ modifications for ADL. 3=Patient will improve strength/tolerance for activity to enable patient to perform ADL's. OT Education/Plan Problem List/Assessment Assessment: Decreased Activ Tolerance, Decreased Safety Aware, Decreased UE Strength, Dependent Transfers, Impaired Bed Mobility, Impaired Funct Balance, Impaired Self-Care Skills, Restricted Funct UE ROM Discharge Recommendations Plan/Recommendations: Continue POC Therapy D/C Recommendations: Fpc Placement Equpiment Recommendations-D/C: Extended Bath Bench, Extended Shower Sprayer, Prevention Rn Treatment Plan/Plan of Care Treatment,Training & Education: Yes Patient would benefit from OT for education, treatment and training to promote independence in ADL's, mobility, safety and/or upper extremity function for ADL' s. Plan of Care: ADL Retraining, Caregiver Training, Cognitive Retraining, UE Funct Exercise/Act, UE Neuromus Re-Ed/Coord Treatment Duration: May 28, 2018 Frequency: 5 times per week Estimated Hrs Per Day: .25 hour per day Agreement: Yes Rehab Potential: Fair Pt not feeling good today. Pt says that ," I am very tired, weak & SOB." Time/GCodes Start Time: 13:35 Stop Time: 13:45 Total Time Billed (hr/min): 10 Billed Treatment Time 1, EX 10 Total 10 min. ISSA BENDER OT May 02, 2018 14:55
[2018-05-02] MEDS: ALPRAZolam 0.25 MG (XANAX) TAB PO PRN (15:00)
[2018-05-02 15:03] VITALS: BP 126/69
--- NOTE | 2018-05-02 15:18 | Diagnostic Imaging Report ---
PROCEDURE: CT angiography of the chest with contrast. TECHNIQUE: Multiple contiguous axial images were obtained through the chest after uneventful bolus administration of intravenous contrast. 2D reconstructed CTA MIP acquisitions were also performed. INDICATION: Shortness of air. Pneumonia. COMPARISON: Chest radiograph 05/01/2018. CTA of the chest 07/07/2015. FINDINGS: No pulmonary artery filling defects. No thoracic aortic aneurysm or dissection. Normal heart size. No pericardial effusion. No mediastinal, hilar or axillary lymphadenopathy. Moderate esophageal hiatal hernia. No endobronchial lesions. Small right pleural effusion. Simple appearing partially visualized cyst in the left kidney. Chronic appearing compression fracture of T12 and inferior endplate compression of T10. No acute osseous findings. IMPRESSION: 1. No pulmonary emboli. No thoracic aortic aneurysm or dissection. 2. Small right pleural effusion. 3. Moderate esophageal hiatal hernia. Dictated by: Dictated on workstation # [id number]
--- NOTE | 2018-05-02 15:21 | NUR ---
Pastoral care visit, provided support and prayer.
--- NOTE | 2018-05-02 16:38 | Consultation-Cardiology ---
HPI-Cardiology Cardiology Consultation: Date of Consultation 05/02/18 Time Seen by a Provider: 16:20 Date of Admission Attending Physician Karen Conte DO Admitting Physician Yeimi Joseph DO Consulting Physician MORE ARELLANO MD, MA, FACP, FACC, [facility] [place] [facility], CCDS Physician requesting consult: Dr Joseph HPI: Chief Complaint: Reason for consultation: Shortness of breath HPI 87 yo woman who was found to be on the floor on the morning of 04/28/18 by her son; was groggy and confused. Was known to be well the night before (conversed normally with her daughter the night before). Notes some shortness of breath. Denies cp or palp or syncope. Lives by self. No leg swelling or fever or cough Review of Systems-Cardiology Review of Systems Constitutional: malaise; No weight loss, No weight gain Eyes: No vision change Ears/Nose/Throat: ear discharge, nasal drainage; No recent hearing loss Respiratory: As described under HPI Cardiovascular: As described under HPI Gastrointestinal: No diarrhea, No vomiting Genitourinary: No dysuria, No hematuria Musculoskeletal: No back pain, No joint pain Psychiatric/Neurological: As described under HPI Hematologic: No bleeding abnormalities All Other Systems Reviewed Negative Unless Noted: Yes FLC-Lgcvgk-Hjwowo Hx Patient Social History Employed/Student: retired Alcohol Use: Denies Use Recreational Drug Use: No Smoking Status: Never a Smoker Recent Foreign Travel: No Recent Infectious Disease Expo: No Physical Abuse Screen: No Sexual Abuse: No Immunizations Up To Date Date of Pneumonia Vaccine: Jan 06, 2011 Date of Influenza Vaccine: Jan 06, 2010 Past Medical History PMH As described under Assessment. Family Medical History Family History: Patient reports no known family medical history. Allergies and Home Medications Allergies Coded Allergies: Penicillins (Unverified Allergy, Unknown, RASH, 08/13/14) morphine (Verified Allergy, Unknown, 12/08/08) Uncoded Allergies: SSRI (Allergy, Unknown, RAPID PULSE, BP INCREASE, 08/13/14) Home Medications Amitriptyline HCl 25 Mg Tablet, 25 MG PO HS, (Reported) Atenolol 25 Mg Tablet, 25 MG PO HS, (Reported) Ergocalciferol (Vitamin D2) 50,000 Unit Capsule, 50,000 UNITS PO Torres, (Reported) Memantine HCl 5 Mg Tablet, 5 MG PO BID, (Reported) Metoclopramide HCl 5 Mg Tablet, 5 MG PO TID, (Reported) Multivitamin 1 Each Tablet, 1 TAB PO DAILY, (Reported) Pantoprazole Sodium 40 Mg Tablet.dr, 40 MG PO BID, (Reported) Rivastigmine Tartrate 6 Mg Capsule, 6 MG PO DAILY, (Reported) Sucralfate 1 Gm Tablet, 1 GM PO ACHS, (Reported) Tamoxifen Citrate 20 Mg Tablet, 20 MG PO DAILY, (Reported) Patient Home Medication List Home Medication List Reviewed: Yes Physical Exam-Cardiology Physical Exam Vital Signs/I&O 05/02/18 05/02/18 05/02/18 05/02/18 06:18 07:36 08:00 10:21 Temp 97.5 Pulse 75 Resp 21 B/P (MAP) 108/56 (73) Pulse Ox 91 93 96 88 O2 Delivery Nasal Cannula High Flow N/C Nasal Cannula Nasal Cannula O2 Flow Rate 5.00 5.00 5.00 4.00 05/02/18 05/02/18 05/02/18 05/02/18 10:38 11:16 12:51 13:44 Temp 97.2 Pulse 78 72 62 Resp 36 28 32 B/P (MAP) 127/64 (85) Pulse Ox 91 93 96 94 O2 Delivery NIV Bilevel Vapotherm O2 Flow Rate 40.00 40.00 30.00 FiO2 40 05/02/18 05/02/18 14:51 15:03 Temp 97.7 Pulse 82 Resp 21 B/P (MAP) 126/69 (88) Pulse Ox 92 94 O2 Delivery Vapotherm Vapotherm O2 Flow Rate 30.00 30.00 25.00 FiO2 40 05/02/18 00:00 Intake Total 980 ml Output Total 700 ml Balance 280 ml Capillary Refill : Less Than 3 Seconds Constitutional: AAO x 3, well-developed, well-nourished HEENT: PERRL, EOMI; No xanthelasmas are seen Neck: carotid pulses are 2 + bilaterally, with good upstrokes Respiratory: No accessory muscle use; other (good bilat air entry, but diminished at the bases) Cardiovascular: regular rate-rhythm, S1 and S2, systolic murmur (soft HANK at card base) Gastrointestinal: No tender; soft; No guarding, No rebound; audible bowel sounds Extremities: No clubbing, No cyanosis, No significant edema Neurologic/Psychiatric: other (appear oriented and appropriately responsive at time of my exam; seems to be able to move all limbs equally) Data Review Labs Laboratory Tests 05/02/18 13:25: Troponin I 0.031H, B-Type Natriuretic Peptide 548.3H Microbiology 04/28/18 Blood Culture - Preliminary, Resulted No growth 04/29/18 Gram Stain - Final, Complete 04/29/18 Sputum Culture - Final, Complete Usual upper respiratory makenzie A/P-Cardiology Assessment/Admission Diagnosis Rapid physical and cognitive decline of undetermined etiology Probable R-sided pneumonia, suspected to be aspiration Rhabdomyolysis from maintaining the same position on the floor (presumably overnight). Syncope may have been the initiating event Cannot exclude old DC: basal inferior wall motion abn on echo of 05/02/18, LVEF WNL and PASP WNL No evidence of PE on pulm CT angio of 05/02/18 LBBB on ECG, probably chronic Mild to mod BNP elevation, likely related to pneumonia / transient hypoxia Discussion and Recomendations * Consider tele to eval for arrhythmia * I discussed her case in detail with Dr Joseph and then with Dr Lezama Clinical Quality Measures DVT/VTE Risk/Contraindication: Risk Factor Score Per Nursin RFS Level Per Nursing on Admit: 4+=Very High MORE ARELLANO MD FACP FAC CCDS May 02, 2018 16:38
[2018-05-02] MEDS: AZITHROMYCIN 250 MG TAB (ZITHROMAX) PO SCH (17:52)
[2018-05-02] MEDS: cefTRIAXone FOR IV USE 1,000 MG in WATER (STERILE) FOR INJECTION 10 ML IV SCH (17:53)
[2018-05-02] MEDS: ENOXAPARIN 40 MG/0.4 ML (LOVENOX) SYR SC SCH (17:56)
--- NOTE | 2018-05-02 18:03 | Progress Note (SOAP) ---
Subjective Date Seen by a Provider: May 02, 2018 Time Seen by a Provider: 12:20 Subjective/Events-last exam wup pneumonia, elevated CPK--rhabdomyolysis, Hypertension, GERD, Dementia. Back on BIPAP since about 10am. Daughter at bedside. Patient having more labored breathing today but is asking when she can eat. Objective Exam Vital Signs Date Time Temp Pulse Resp B/P (MAP) Pulse Ox O2 Delivery O2 Flow Rate FiO2 05/02/18 15:03 97.7 82 21 126/69 (88) 94 Vapotherm 30.00 25.00 05/02/18 14:51 92 Vapotherm 30.00 40 05/02/18 13:44 94 Vapotherm 30.00 40 05/02/18 12:51 62 32 96 40.00 05/02/18 11:16 97.2 72 28 127/64 (85) 93 NIV Bilevel 05/02/18 10:38 78 36 91 40.00 05/02/18 10:21 88 Nasal Cannula 4.00 05/02/18 08:00 96 Nasal Cannula 5.00 05/02/18 07:36 97.5 75 21 108/56 (73) 93 High Flow N/C 5.00 05/02/18 06:18 91 Nasal Cannula 5.00 05/02/18 04:00 69 25 91 40.00 05/02/18 03:54 98.1 67 24 100/61 (74) 94 NIV Bilevel 05/02/18 01:17 72 25 92 40.00 05/02/18 00:00 97.9 71 21 102/58 (73) 96 NIV Bilevel 05/01/18 23:48 74 25 95 40.00 05/01/18 21:30 70 34 98 40.00 05/01/18 20:11 97.8 78 22 103/52 (69) 95 Nasal Cannula 5.00 05/01/18 20:00 Nasal Cannula 5.00 05/01/18 18:07 66 97 40 05/01/18 18:07 97 Nasal Cannula 5.00 I & O 05/02/18 07:00 Intake Total 980 ml Output Total 700 ml Balance 280 ml Capillary Refill : Less Than 3 Seconds General Appearance: Mild Distress (respiratory) Neck: Supple Respiratory: Decreased Breath Sounds, Respiratory Distress, Rhonci Cardiovascular: Regular Rate, Rhythm, Systolic Murmur Gastrointestinal: normal bowel sounds, non tender, soft Extremity: Non Tender, No Calf Tenderness, No Pedal Edema Neurologic/Psychiatric: Alert Skin: Warm/Dry Results Lab Laboratory Tests 05/02/18 13:25: Troponin I 0.031H, B-Type Natriuretic Peptide 548.3H Microbiology 04/28/18 Blood Culture - Preliminary, Resulted No growth 04/29/18 Gram Stain - Final, Complete 04/29/18 Sputum Culture - Final, Complete Usual upper respiratory makenzie Assessment/Plan Assessment/Plan Assess & Plan/Chief Complaint 1. Acute Community Acquired Pneumonia--On Rocephin/Zithromax and SVNs 2. Elevated CPK--probable rhabdomyolysis, doing gentle IVF rehydration, consult cardiology to rule out cardiac etiology 3. Choking with Possible Aspiration--swallow eval normal 4. Hypertension--restarted on home meds 5. GERD--on protonix 6. Alzheimer's Dementia--home meds resumed 7. RAD/Respiratory Distress--Check CT angiogram of chest and consult pulmonology Clinical Quality Measures DVT/VTE Risk/Contraindication: Risk Factor Score Per Nursin RFS Level Per Nursing on Admit: 4+=Very High NETTE MAYO DO May 02, 2018 18:03
--- NOTE | 2018-05-02 19:36 | NUR ---
Dr. Lezama here to see pt. Order received for Morphine 2 mg IV q1 hr PRN respiratory distress.
[2018-05-02] MEDS ORDERED: morphine INJ 4 MG/ML 1 ML (VIAL/SYRINGE) IVP PRN (19:45)
--- NOTE | 2018-05-02 19:53 | NUR ---
Pt increasingly weak, unable to ambulate without maximum assistance. This RN notified Dr. Lezama. Orders received for ram catheter at this time.
[2018-05-02 20:00] VITALS: BP 118/64
[2018-05-02] MEDS: ATENOLOL 50 MG (TENORMIN) TAB PO SCH (21:32)
[2018-05-03] VITALS (7 sets, daily range): BP systolic 101–122; BP diastolic 54–75
[2018-05-03] MEDS: methylPREDNISolone 40 MG/ML (Solu-MEDROL) VIAL IV SCH ×5 (00:02→23:33)
[2018-05-03] MEDS: ALPRAZolam 0.25 MG (XANAX) TAB PO PRN (01:53)
--- NOTE | 2018-05-03 02:04 | NUR ---
Pt's bipap alarm sounding high pressure. This RN at bedside. Pt awake et removing bipap mask. This RN encouraged pt to keep bipap mask on to assist in breathing. Pt refusing to keep mask on at this time. RT Timur at bedside. Pt stated " I am 87 years old and I don't have to wear that thing anymore." Pt requesting that RT remove bipap mask et wear vapotherm at this time. Vapotherm applied, settings set at 20 liters at 30% FiO2. Will continue to monitor pt.
[2018-05-03] MEDS: RT-ALBUTEROL SULF 2.5 MG/3 ML PRE-MIX VIAL INH SCH ×6 (02:20→22:04)
[2018-05-03] MEDS: MULTIVIT W/MINERALS TAB (THERAGRAN M) PO SCH (05:10)
[2018-05-03] MEDS: ACETAMINOPHEN 500 MG TAB (TYLENOL) PO PRN (05:19)
[2018-05-03] MEDS: 1/2 NS IV SOLUTION 1,000 ML IV SCH ×2 (06:10→08:34)
[2018-05-03 06:59] LABS: BASOPHILS % (AUTO) 0 % (0-10); EOSINOPHILS % (AUTO) 0 % (0-10); HEMATOCRIT 32 % (35-52); HEMOGLOBIN 11.1 G/DL (11.5-16.0); LYMPHOCYTES # (AUTO) 0.7 X 10^3 (1.0-4.0); LYMPHOCYTES % (AUTO) 8 % (12-44); MEAN CORPUSCULAR HEMOGLOBIN 32 PG (25-34); MEAN CORPUSCULAR HGB CONC 35 G/DL (32-36); MEAN CORPUSCULAR VOLUME 91 FL (80-99); MEAN PLATELET VOLUME 11.1 FL (7.4-10.4); MONOCYTES # (AUTO) 0.7 X 10^3 (0.0-1.0); MONOCYTES % (AUTO) 7 % (0-12); NEUTROPHILS # (AUTO) 7.8 X 10^3 (1.8-7.8); NEUTROPHILS % (AUTO) 85 % (42-75); PLATELET COUNT 148 10^3/uL (130-400); RED CELL DISTRIBUTION WIDTH 14.2 % (10.0-14.5); WHITE BLOOD COUNT 9.2 10^3/uL (4.3-11.0)
[2018-05-03 07:19] LABS: ALANINE AMINOTRANSFERASE 94 U/L (0-55); ALBUMIN 3.1 GM/DL (3.2-4.5); ALKALINE PHOSPHATASE 29 U/L (40-136); BILIRUBIN,TOTAL 0.3 MG/DL (0.1-1.0); BUN/CREATININE RATIO 21; CALCIUM 7.4 MG/DL (8.5-10.1); CARBON DIOXIDE 22 MMOL/L (21-32); CHLORIDE 98 MMOL/L (98-107); CREATININE SERUM 0.72 MG/DL (0.60-1.30); GFR ESTIMATED > 60; GLUCOSE 124 MG/DL (70-105); POTASSIUM 4.2 MMOL/L (3.6-5.0); SODIUM 130 MMOL/L (135-145)
[2018-05-03] MEDS: guaiFENesin (MUCINEX) 600 MG TAB PO SCH ×2 (08:33→21:37)
[2018-05-03] MEDS: RIVASTIGMINE 1.5 MG (EXELON) CAP PO SCH (08:33)
[2018-05-03] MEDS: MEMANTINE 5 MG (NAMENDA) TABLET PO SCH ×2 (08:33→21:37)
[2018-05-03] MEDS: PANTOPRAZOLE 40 MG (PROTONIX) TAB PO SCH ×2 (08:33→21:37)
[2018-05-03] MEDS ORDERED: FUROSEMIDE 40 MG/4 ML INJ (LASIX) IVP NR (09:00)
[2018-05-03] MEDS ORDERED: KCL 20 MEQ TAB (K-DUR) PO NR (09:00)
--- NOTE | 2018-05-03 09:04 | Pulmonary Progress Note ---
Subjective Time Seen by a Provider: 07:39 Subjective/Events-last exam C/O SOB Sepsis Event Evaluation Height, Weight, BMI Height: 5'3.00" Weight: 118lbs. 8.0oz. 53.232906gp; 19.7 BMI Method: Exam Exam Vital Signs Date Time Temp Pulse Resp B/P (MAP) Pulse Ox O2 Delivery O2 Flow Rate FiO2 05/03/18 07:29 91 Vapotherm 25.00 30 05/03/18 06:31 80 93 30 05/03/18 04:37 97.6 80 32 106/55 (72) 93 NIV Bilevel 05/03/18 02:20 91 Vapotherm 20.00 30 05/03/18 00:54 97.7 74 18 104/54 (71) 94 NIV Bilevel 05/03/18 00:39 74 18 94 40.00 05/02/18 21:57 77 33 92 40.00 05/02/18 20:00 Vapotherm 25.00 30 05/02/18 20:00 97.9 73 20 118/64 (82) 96 Vapotherm 30.00 25.00 05/02/18 18:46 90 Vapotherm 25.00 30 05/02/18 15:03 97.7 82 21 126/69 (88) 94 Vapotherm 30.00 25.00 05/02/18 14:51 92 Vapotherm 30.00 40 05/02/18 13:44 94 Vapotherm 30.00 40 05/02/18 12:51 62 32 96 40.00 05/02/18 11:16 97.2 72 28 127/64 (85) 93 NIV Bilevel 05/02/18 10:38 78 36 91 40.00 05/02/18 10:21 88 Nasal Cannula 4.00 I & O 05/03/18 07:00 Intake Total 1820 ml Output Total 1750 ml Balance 70 ml Height & Weight Height: 5'3.00" Weight: 118lbs. 8.0oz. 53.181176aa; 19.7 BMI Method: General Appearance: Mild Distress (respiratory) HEENT: TMs Normal, Normal ENT Inspection Neck: Supple Respiratory: Decreased Breath Sounds, Respiratory Distress, Rhonci Cardiovascular: Regular Rate, Rhythm, Systolic Murmur Gastrointestinal: normal bowel sounds, non tender, soft Extremity: Non Tender, No Calf Tenderness, No Pedal Edema Neurologic/Psychiatric: Alert Skin: Warm/Dry Results Lab Laboratory Tests 05/03/18 06:20 Assessment/Plan Assessment/Plan Community acquired pneumonia r/o aspiration -Swallow eval was normal -Rocephin and azithromycin -CXR reviewed -Check CT of chest - reviewed shows pulmonary edema with bilateral pleural effusions -Will give 40mg of IV lasix and 40meq of Kdur with it x 1 -Hep lock IVF Hyponatremia -lasix Acute bronchitis with bilateral wheezing -solumedrol 40 IV Q6 -SVNS Hypoxia -Oxygen -Start Vapotherm CANDY AGUILAR DO May 03, 2018 09:04
--- NOTE | 2018-05-03 09:40 | Progress Note-Cardiology ---
Cardiology SOAP Progress Note Subjective: Sitting up in chair with Vapo-Therm on. Refusing to wear Bi-pap. Family x1 at the bedside feels her breathing is unchanged from yesterday, but her mentation has improved. Pt states her breathing is "fine", but is visibly dyspneic. No c /o pain or CP. Objective: I&O/Vital Signs 05/03/18 05/03/18 05/03/18 05/03/18 04:37 06:31 07:29 08:00 Temp 97.6 Pulse 80 80 Resp 32 B/P (MAP) 106/55 (72) Pulse Ox 93 93 91 O2 Delivery NIV Bilevel Vapotherm Vapotherm O2 Flow Rate 25.00 25.00 FiO2 30 30 30 05/03/18 05/03/18 05/03/18 05/03/18 08:00 10:18 12:00 14:31 Temp 98.3 97.5 Pulse 80 79 Resp 24 18 B/P (MAP) 112/61 (78) 101/57 (72) Pulse Ox 89 89 91 91 O2 Delivery Vapotherm Vapotherm Vapotherm Vapotherm O2 Flow Rate 30.00 25.00 30.00 25.00 25.00 25.00 FiO2 30 40 05/03/18 16:13 Temp 97.4 Pulse 81 Resp 21 B/P (MAP) 108/56 (73) Pulse Ox 98 O2 Delivery Vapotherm O2 Flow Rate 30.00 25.00 05/03/18 00:00 Intake Total 1570 ml Output Total 1050 ml Balance 520 ml Weight (Pounds): 118 Weight (Ounces): 8.0 Weight (Calculated Kilograms): 53.386217 Constitutional: AAO x 3, well-developed, well-nourished Respiratory: No accessory muscle use; rhonchi (scattered), other (good bilat air entry, but diminished at the bases) Cardiovascular: regular rate-rhythm, S1 and S2, systolic murmur (soft HANK at card base) Gastrointestional: No tender; soft; No guarding, No rebound; audible bowel sounds Genital/Rectal: other (Urinary catheter to DD; clear yellow urine) Extremities: No clubbing, No cyanosis, No significant edema Neurologic/Psychiatric: other (appear oriented and appropriately responsive at time of my exam; seems to be able to move all limbs equally) Results/Procedures: Labs Laboratory Tests 05/03/18 06:20: White Blood Count 9.2, Red Blood Count 3.51L, Hemoglobin 11.1L, Hematocrit 32L, Mean Corpuscular Volume 91, Mean Corpuscular Hemoglobin 32, Mean Corpuscular Hemoglobin Concent 35, Red Cell Distribution Width 14.2, Platelet Count 148, Mean Platelet Volume 11.1H, Neutrophils (%) (Auto) 85H, Lymphocytes (%) (Auto) 8L, Monocytes (%) (Auto) 7, Eosinophils (%) (Auto) 0, Basophils (%) (Auto) 0, Neutrophils # (Auto) 7.8, Lymphocytes # (Auto) 0.7L, Monocytes # (Auto) 0.7, Eosinophils # (Auto) 0.0, Basophils # (Auto) 0.0, Sodium Level 130L, Potassium Level 4.2, Chloride Level 98, Carbon Dioxide Level 22, Anion Gap 10, Blood Urea Nitrogen 15, Creatinine 0.72, Estimat Glomerular Filtration Rate > 60, BUN/ Creatinine Ratio 21, Glucose Level 124H, Calcium Level 7.4L, Corrected Calcium 8.1L, Total Bilirubin 0.3, Aspartate Amino Transf (AST/SGOT) 135H, Alanine Aminotransferase (ALT/SGPT) 94H, Alkaline Phosphatase 29L, Total Protein 5.0L, Albumin 3.1L Microbiology 04/28/18 Blood Culture - Preliminary, Resulted No growth 04/29/18 Gram Stain - Final, Complete 04/29/18 Sputum Culture - Final, Complete Usual upper respiratory makenzie Procedures NAME: REINALDO LEZAMA [facility] REC#: [id number] PT STATUS: ADM IN : 1930 PHYSICIAN: NETTE JOSEPH DO ADMIT DATE: 04/28/18 Signed Date of Exam: 05/02/18 CT ANGIO CHEST W PROCEDURE: CT angiography of the chest with contrast. TECHNIQUE: Multiple contiguous axial images were obtained through the chest after uneventful bolus administration of intravenous contrast. 2D reconstructed CTA MIP acquisitions were also performed. INDICATION: Shortness of air. Pneumonia. COMPARISON: Chest radiograph 05/01/2018. CTA of the chest 07/07/2015. FINDINGS: No pulmonary artery filling defects. No thoracic aortic aneurysm or dissection. Normal heart size. No pericardial effusion. No mediastinal, hilar or axillary lymphadenopathy. Moderate esophageal hiatal hernia. No endobronchial lesions. Small right pleural effusion. Simple appearing partially visualized cyst in the left kidney. Chronic appearing compression fracture of T12 and inferior endplate compression of T10. No acute osseous findings. IMPRESSION: 1. No pulmonary emboli. No thoracic aortic aneurysm or dissection. 2. Small right pleural effusion. 3. Moderate esophageal hiatal hernia. Dictated by: Dictated on workstation # [id number] Dict: 05/02/18 1506 Trans: 05/02/18 1630 Interpreted by: MARYAN SHARMA MD Electronically signed by: MARYAN SHARMA MD 05/02/18 1630 A/P: Assessment: Rapid physical and cognitive decline of undetermined etiology Probable R-sided pneumonia, suspected to be aspiration Rhabdomyolysis from maintaining the same position on the floor (presumably overnight). Syncope may have been the initiating event Cannot exclude old IL: basal inferior wall motion abn on echo of 05/02/18, LVEF WNL and PASP WNL No evidence of PE on pulm CT angio of 05/02/18 LBBB on ECG, probably chronic Mild to mod BNP elevation, likely related to pneumonia / transient hypoxia / ac darling CHF Plan: * Consider tele to eval for arrhythmia * Dr. Rainey has discussed her case in detail with Dr Joseph and then with Dr Lezama * Worsening pulmonary congestion - IVF stopped and lasix given per pulmonary services Physician Assessment Physician Assessment Feels better today (at time of my exam). No cp. Shortness of breath improved. No palp or syncope Lungs: good bilat air entry, diminished at the bases Cor: reg Ext: no c/c/e A&R * As documented in our note above that I updated (italics) and as noted below * Furosemide today for vol overload vs ac darling CHF * Monitor labs ALISE CARR May 03, 2018 09:40 MORE RAINEY MD [facility] CCDS May 03, 2018 16:31
--- NOTE | 2018-05-03 09:50 | NUR ---
CM/SS, continued daily review for acute status. No clear discharge in sight at this time. Bed is available at [facility] when medically stable.
--- NOTE | 2018-05-03 15:21 | Physical Therapy Daily Note ---
PT Daily Note-Current Subjective Pt laying Supine in bed upon arrival. Pt agrees to PT. Pain Numeric Pain Scale: 5-Moderate Pain Location Body Site: Back Pain Description: Ache Mental Status Patient Orientation: Person, Place, Situation Attachments: Oxygen Transfers Therapy Code Descriptions/Definitions Functional [place] Measure: 0=Not Assessed/NA 4=Minimal Assistance 1=Total Assistance 5=Supervision or Setup 2=Maximal Assistance 6=Modified [place] 3=Moderate Assistance 7=Complete [place] Therapy Quality Codes: 6 Independent with activity with or without an assistive device 5 Patient requires set up or clean up by helper. Patient completes activity by themselves 4 Supervision or touching assist (CGA). Hernandez provide cues , steadying assist 3 The helper provides less than half the effort to complete the activity 2 The helper provides more than half the effort to complete the activity 1 Dependent. The helper does all the effort to complete an activity 7 Patient refused to complete or attempt activity 9 The patient did not perform the activity before the current illness or injury 88 Not attempted due to Medical conditions or safety concerns Weight Bearing Right Lower Extremity: Right Full Weight Bearing Left Lower Extremity: Left Full Weight Bearing Exercises Supine Ex: Ankle pumps, Quad Set, Glut sets, Heel Slides, Straight leg raise, Hip abd/add Supine Reps: 15 Treatments Pt completes Supine Ex in bed with explanation/description for pt & daughter. AD SETTER gave HEP to pt & daughter. Assessment Current Status: Good Progress Pt is able to complete Ex with occasional assistance. PT Short Term Goals Short Term Goals Time Frame: May 07, 2018 Transfers (B,C,W/C) (FIM): 3 Gait (FIM): 2 Distance (FIM): 5=771-48 ft Gait Distance Comment: 50' Gait Level of Assist: 4 Gait Assistive Device: FWW PT Plan Problem List Problem List: Activity Tolerance, Functional Strength Treatment/Plan Treatment Plan: Continue Plan of Care Treatment Plan: Bed Mobility, Education, Functional Activity Chas, Functional Strength, Gait, Safety, Therapeutic Exercise, Transfers Treatment Duration: May 07, 2018 Frequency: 6 times per week Estimated Hrs Per Day: .25 hour per day Patient and/or Family Agrees t: Yes Safety Risks/Education Patient Education: Transfer Techniques, Correct Positioning, Safety Issues Teaching Recipient: Patient, Family Teaching Methods: Discussion Response to Teaching: Verbalize Understanding Time/GCodes Time In: 1430 Time Out: 1500 Total Billed Treatment Time: 30 Total Billed Treatment 1, EX x2 (30m) G Codes Necessary: MALCOLM Mckee PTA May 03, 2018 15:21
[2018-05-03] MEDS: cefTRIAXone FOR IV USE 1,000 MG in WATER (STERILE) FOR INJECTION 10 ML IV SCH (18:02)
[2018-05-03] MEDS: ENOXAPARIN 40 MG/0.4 ML (LOVENOX) SYR SC SCH (18:02)
[2018-05-03] MEDS: ATENOLOL 50 MG (TENORMIN) TAB PO SCH (21:37)
--- NOTE | 2018-05-03 21:44 | Progress Note (SOAP) ---
Subjective Date Seen by a Provider: May 03, 2018 Time Seen by a Provider: 12:30 Subjective/Events-last exam Fwup pneumonia, elevated CPK--rhabdomyolysis, Hypertension, GERD, Dementia. On Vapotherm. Daughter at bedside. Objective Exam Vital Signs Date Time Temp Pulse Resp B/P (MAP) Pulse Ox O2 Delivery O2 Flow Rate FiO2 05/03/18 18:02 92 Vapotherm 25.00 40 05/03/18 16:13 97.4 81 21 108/56 (73) 98 Vapotherm 30.00 25.00 05/03/18 14:31 91 Vapotherm 25.00 40 05/03/18 12:00 97.5 79 18 101/57 (72) 91 Vapotherm 30.00 25.00 05/03/18 10:18 89 Vapotherm 25.00 30 05/03/18 08:00 98.3 80 24 112/61 (78) 89 Vapotherm 30.00 25.00 05/03/18 08:00 Vapotherm 25.00 30 05/03/18 07:29 91 Vapotherm 25.00 30 05/03/18 06:31 80 93 30 05/03/18 04:37 97.6 80 32 106/55 (72) 93 NIV Bilevel 05/03/18 02:20 91 Vapotherm 20.00 30 05/03/18 00:54 97.7 74 18 104/54 (71) 94 NIV Bilevel 05/03/18 00:39 74 18 94 40.00 05/02/18 21:57 77 33 92 40.00 I & O 05/03/18 07:00 Intake Total 1820 ml Output Total 1750 ml Balance 70 ml Capillary Refill : Less Than 3 Seconds General Appearance: No Apparent Distress Neck: Supple Respiratory: Lungs Clear, Decreased Breath Sounds Cardiovascular: Regular Rate, Rhythm, Systolic Murmur Gastrointestinal: normal bowel sounds, non tender, soft Extremity: Non Tender, No Calf Tenderness, No Pedal Edema Neurologic/Psychiatric: Alert Skin: Warm/Dry Results Lab Laboratory Tests 05/03/18 06:20: White Blood Count 9.2, Red Blood Count 3.51L, Hemoglobin 11.1L, Hematocrit 32L, Mean Corpuscular Volume 91, Mean Corpuscular Hemoglobin 32, Mean Corpuscular Hemoglobin Concent 35, Red Cell Distribution Width 14.2, Platelet Count 148, Mean Platelet Volume 11.1H, Neutrophils (%) (Auto) 85H, Lymphocytes (%) (Auto) 8L, Monocytes (%) (Auto) 7, Eosinophils (%) (Auto) 0, Basophils (%) (Auto) 0, Neutrophils # (Auto) 7.8, Lymphocytes # (Auto) 0.7L, Monocytes # (Auto) 0.7, Eosinophils # (Auto) 0.0, Basophils # (Auto) 0.0, Sodium Level 130L, Potassium Level 4.2, Chloride Level 98, Carbon Dioxide Level 22, Anion Gap 10, Blood Urea Nitrogen 15, Creatinine 0.72, Estimat Glomerular Filtration Rate > 60, BUN/ Creatinine Ratio 21, Glucose Level 124H, Calcium Level 7.4L, Corrected Calcium 8.1L, Total Bilirubin 0.3, Aspartate Amino Transf (AST/SGOT) 135H, Alanine Aminotransferase (ALT/SGPT) 94H, Alkaline Phosphatase 29L, Total Protein 5.0L, Albumin 3.1L Microbiology 04/28/18 Blood Culture - Preliminary, Resulted No growth 04/29/18 Gram Stain - Final, Complete 04/29/18 Sputum Culture - Final, Complete Usual upper respiratory makenzie Assessment/Plan Assessment/Plan Assess & Plan/Chief Complaint 1. Acute Community Acquired Pneumonia--On Rocephin/Zithromax and SVNs 2. Elevated CPK--probable rhabdomyolysis 3. Choking with Possible Aspiration--swallow eval normal 4. Hypertension--restarted on home meds 5. GERD--on protonix 6. Alzheimer's Dementia--home meds resumed 7. RAD/Respiratory Distress--on Vapotherm and not as much respiratory distress today 8. Pulmonary Edema--given IV Lasix 9. Did discuss DC plans with both patient and daughter including NH for shelter vs home with comfort care Clinical Quality Measures DVT/VTE Risk/Contraindication: Risk Factor Score Per Nursin RFS Level Per Nursing on Admit: 4+=Very High NETTE MAYO DO May 03, 2018 21:44
[2018-05-03] MEDS: LORazepam INJ 2 MG/ML (ATIVAN) VIAL IVP PRN (21:50)
[2018-05-04] VITALS: BP 114/78
[2018-05-04] MEDS: RT-ALBUTEROL SULF 2.5 MG/3 ML PRE-MIX VIAL INH SCH ×7 (02:25→23:43)
[2018-05-04 03:52] VITALS: BP 120/65
[2018-05-04 05:56] LABS: BASOPHILS % (AUTO) 0 % (0-10); EOSINOPHILS % (AUTO) 0 % (0-10); HEMATOCRIT 36 % (35-52); HEMOGLOBIN 12.4 G/DL (11.5-16.0); LYMPHOCYTES # (AUTO) 0.7 X 10^3 (1.0-4.0); LYMPHOCYTES % (AUTO) 7 % (12-44); MEAN CORPUSCULAR HEMOGLOBIN 31 PG (25-34); MEAN CORPUSCULAR HGB CONC 34 G/DL (32-36); MEAN CORPUSCULAR VOLUME 91 FL (80-99); MEAN PLATELET VOLUME 10.9 FL (7.4-10.4); MONOCYTES # (AUTO) 0.7 X 10^3 (0.0-1.0); MONOCYTES % (AUTO) 7 % (0-12); NEUTROPHILS % (AUTO) 86 % (42-75); PLATELET COUNT 169 10^3/uL (130-400); RED CELL DISTRIBUTION WIDTH 14.2 % (10.0-14.5); WHITE BLOOD COUNT 10.4 10^3/uL (4.3-11.0)
[2018-05-04] MEDS: methylPREDNISolone 40 MG/ML (Solu-MEDROL) VIAL IV SCH ×3 (06:06→17:50)
[2018-05-04] MEDS: MULTIVIT W/MINERALS TAB (THERAGRAN M) PO SCH (06:06)
[2018-05-04] MEDS: KCL 20 MEQ TAB (K-DUR) PO SCH (06:06)
[2018-05-04 06:15] LABS: ALANINE AMINOTRANSFERASE 90 U/L (0-55); ALBUMIN 3.4 GM/DL (3.2-4.5); ALKALINE PHOSPHATASE 32 U/L (40-136); BILIRUBIN,TOTAL 0.4 MG/DL (0.1-1.0); BUN/CREATININE RATIO 24; CALCIUM 7.8 MG/DL (8.5-10.1); CARBON DIOXIDE 24 MMOL/L (21-32); CHLORIDE 99 MMOL/L (98-107); GFR ESTIMATED > 60; GLUCOSE 127 MG/DL (70-105); MAGNESIUM 2.3 MG/DL (1.8-2.4); POTASSIUM 4.7 MMOL/L (3.6-5.0); SODIUM 132 MMOL/L (135-145); TOTAL PROTEIN 5.5 GM/DL (6.4-8.2)
--- NOTE | 2018-05-04 07:03 | Pulmonary Progress Note ---
Subjective Time Seen by a Provider: 07:03 Sepsis Event Evaluation Height, Weight, BMI Height: 5'3.00" Weight: 118lbs. 8.0oz. 53.714751mt; 19.7 BMI Method: Exam Exam Vital Signs Date Time Temp Pulse Resp B/P (MAP) Pulse Ox O2 Delivery O2 Flow Rate FiO2 05/04/18 03:52 98.6 84 22 120/65 (83) 91 Vapotherm 40.00 25.00 05/04/18 02:25 92 Vapotherm 25.00 40 05/04/18 00:00 98.0 77 18 114/78 (90) 93 Vapotherm 40.00 25.00 05/03/18 22:04 93 Vapotherm 25.00 40 05/03/18 20:00 98.4 95 18 122/75 (91) 96 Vapotherm 30.00 25.00 05/03/18 20:00 Vapotherm 25.00 40 05/03/18 18:02 92 Vapotherm 25.00 40 05/03/18 16:13 97.4 81 21 108/56 (73) 98 Vapotherm 30.00 25.00 05/03/18 14:31 91 Vapotherm 25.00 40 05/03/18 12:00 97.5 79 18 101/57 (72) 91 Vapotherm 30.00 25.00 05/03/18 10:18 89 Vapotherm 25.00 30 05/03/18 08:00 98.3 80 24 112/61 (78) 89 Vapotherm 30.00 25.00 05/03/18 08:00 Vapotherm 25.00 30 05/03/18 07:29 91 Vapotherm 25.00 30 I & O 05/04/18 07:00 Intake Total 2140 ml Output Total 1260 ml Balance 880 ml Height & Weight Height: 5'3.00" Weight: 118lbs. 8.0oz. 53.204903zt; 19.7 BMI Method: General Appearance: No Apparent Distress HEENT: TMs Normal, Normal ENT Inspection Neck: Supple Respiratory: Lungs Clear, Decreased Breath Sounds Cardiovascular: Regular Rate, Rhythm, Systolic Murmur Gastrointestinal: normal bowel sounds, non tender, soft Extremity: Non Tender, No Calf Tenderness, No Pedal Edema Neurologic/Psychiatric: Alert Skin: Warm/Dry Results Lab Laboratory Tests 05/03/18 06:20 05/04/18 05:35 Assessment/Plan Assessment/Plan Community acquired pneumonia r/o aspiration -Swallow eval was normal -Rocephin and azithromycin -Hep lock IVF Pulmonary edema -Continue lasix for now2 Hyponatremia -lasix Acute bronchitis with bilateral wheezing -solumedrol 40 IV Q6 -SVNS Hypoxia -Oxygen -Wean Vapotherm CANDY AGUILAR DO May 04, 2018 07:03
[2018-05-04 08:00] VITALS: BP 121/73
[2018-05-04] MEDS: PANTOPRAZOLE 40 MG (PROTONIX) TAB PO SCH ×2 (08:20→21:16)
[2018-05-04] MEDS: RIVASTIGMINE 1.5 MG (EXELON) CAP PO SCH (08:20)
[2018-05-04] MEDS: guaiFENesin (MUCINEX) 600 MG TAB PO SCH ×2 (08:20→21:16)
[2018-05-04] MEDS: MEMANTINE 5 MG (NAMENDA) TABLET PO SCH ×2 (08:20→21:16)
[2018-05-04] MEDS: FUROSEMIDE 40 MG/4 ML INJ (LASIX) IVP SCH (08:21)
[2018-05-04] MEDS: ACETAMINOPHEN 500 MG TAB (TYLENOL) PO PRN ×2 (09:12→21:16)
--- NOTE | 2018-05-04 10:19 | Progress Note (SOAP) ---
Subjective Date Seen by a Provider: May 04, 2018 Time Seen by a Provider: 10:16 Subjective/Events-last exam Fwup pneumonia, elevated CPK--rhabdomyolysis, Hypertension, GERD, Dementia, pulmonary edema. On Vapotherm but more labored breathing today and feels and looks weaker. Objective Exam Vital Signs Date Time Temp Pulse Resp B/P (MAP) Pulse Ox O2 Delivery O2 Flow Rate FiO2 05/04/18 09:12 100.1 05/04/18 03:52 98.6 84 22 120/65 (83) 91 Vapotherm 40.00 25.00 05/04/18 02:25 92 Vapotherm 25.00 40 05/04/18 00:00 98.0 77 18 114/78 (90) 93 Vapotherm 40.00 25.00 05/03/18 22:04 93 Vapotherm 25.00 40 05/03/18 20:00 98.4 95 18 122/75 (91) 96 Vapotherm 30.00 25.00 05/03/18 20:00 Vapotherm 25.00 40 05/03/18 18:02 92 Vapotherm 25.00 40 05/03/18 16:13 97.4 81 21 108/56 (73) 98 Vapotherm 30.00 25.00 05/03/18 14:31 91 Vapotherm 25.00 40 05/03/18 12:00 97.5 79 18 101/57 (72) 91 Vapotherm 30.00 25.00 05/03/18 10:18 89 Vapotherm 25.00 30 I & O 05/04/18 07:00 Intake Total 2140 ml Output Total 1260 ml Balance 880 ml Capillary Refill : Less Than 3 Seconds General Appearance: Mild Distress Neck: Supple Respiratory: Crackles, Decreased Breath Sounds Cardiovascular: Regular Rate, Rhythm Gastrointestinal: normal bowel sounds, non tender, soft Extremity: Non Tender, No Calf Tenderness, No Pedal Edema Neurologic/Psychiatric: Alert Skin: Ecchymosis Results Lab Laboratory Tests 05/04/18 05:35: White Blood Count 10.4, Red Blood Count 4.02L, Hemoglobin 12.4, Hematocrit 36, Mean Corpuscular Volume 91, Mean Corpuscular Hemoglobin 31, Mean Corpuscular Hemoglobin Concent 34, Red Cell Distribution Width 14.2, Platelet Count 169, Mean Platelet Volume 10.9H, Neutrophils (%) (Auto) 86H, Lymphocytes (%) (Auto) 7L, Monocytes (%) (Auto) 7, Eosinophils (%) (Auto) 0, Basophils (%) (Auto) 0, Neutrophils # (Auto) 9.0H, Lymphocytes # (Auto) 0.7L, Monocytes # (Auto) 0.7, Eosinophils # (Auto) 0.0, Basophils # (Auto) 0.0, Sodium Level 132L, Potassium Level 4.7, Chloride Level 99, Carbon Dioxide Level 24, Anion Gap 9, Blood Urea Nitrogen 19H, Creatinine 0.80, Estimat Glomerular Filtration Rate > 60, BUN/ Creatinine Ratio 24, Glucose Level 127H, Calcium Level 7.8L, Corrected Calcium 8.3L, Magnesium Level 2.3, Total Bilirubin 0.4, Aspartate Amino Transf (AST/SGOT ) 98H, Alanine Aminotransferase (ALT/SGPT) 90H, Alkaline Phosphatase 32L, B- Type Natriuretic Peptide 480.1H, Total Protein 5.5L, Albumin 3.4 Microbiology 04/28/18 Blood Culture - Preliminary, Resulted No growth 04/29/18 Gram Stain - Final, Complete 04/29/18 Sputum Culture - Final, Complete Usual upper respiratory makenzie Assessment/Plan Assessment/Plan Assess & Plan/Chief Complaint 1. Acute Community Acquired Pneumonia--On Rocephin/Zithromax and SVNs, repeat CXR 2. Elevated CPK--probable rhabdomyolysis 3. Choking with Possible Aspiration--swallow eval normal 4. Hypertension--restarted on home meds 5. GERD--on protonix 6. Alzheimer's Dementia--home meds resumed 7. RAD/Respiratory Distress--on Vapotherm 8. Pulmonary Edema--extra IV lasix 9. Did discuss DC plans again and is apparent will need SNF with possible hospice Clinical Quality Measures DVT/VTE Risk/Contraindication: Risk Factor Score Per Nursin RFS Level Per Nursing on Admit: 4+=Very High NETTE MAYO DO May 04, 2018 10:18
--- NOTE | 2018-05-04 10:27 | Physical Therapy Progress Note ---
Therapy Progress Note Patient has had a decline in medical status. Family has declined PT on this date due to this. PT respects family wishes. PT to decrease frequency to 5/wk due to decline and will reassess on Monday. EMMANUEL GREENE PT May 04, 2018 10:27
[2018-05-04] MEDS ORDERED: FUROSEMIDE 40 MG/4 ML INJ (LASIX) IVP NR (10:51)
[2018-05-04] MEDS ORDERED: KCL 8 MEQ (MICRO K) TABLET PO NR (10:52)
[2018-05-04] MEDS: LACTOBACILLUS ACIDOPHILUS (PROBIOTIC) CAPSULE PO SCH ×2 (11:28→17:51)
--- NOTE | 2018-05-04 11:32 | Occupational Ther Daily Note ---
OT Current Status-Daily Note Subjective Late Entry for 05/03/2018. Pt was in bed with her daughter seated beside her bed. Pt was in good mood , alert &b oriented. Pt & her daughter agreed for OT treatment. Mental Status/Objective Patient Orientation: Person, Place Therapy Code Descriptions/Definitions Functional [place] Measure: 0=Not Assessed/NA 4=Minimal Assistance 1=Total Assistance 5=Supervision or Setup 2=Maximal Assistance 6=Modified [place] 3=Moderate Assistance 7=Complete [place] Attachments: Central Line, Saline Lock ADL-Treatment Pt participated in gentle Passive ROM to both wrist, fingers, elbows, & shoulders, Pt completed active ex using 2 lb x 2 sets x 10 reps flexion/ext of elbow & shoulder flexion with assistance . Pt been positioned upright in bed to prevent chocking while her daughter feeding her small bites.. 20 reps with both hands using hand gripper to strengthen hand log turner , 10 reps with each arm using Red Theraband flexion/extension of elbow to increase strength in BUE to participate in all self care tasks & to push up from supine to sit in bed. & from EOB to stand with FWW. Eating (FIM): 4 Grooming (FIM): 4 Education OT Patient Education: Correct positioning, Instructions to caregiver, Safety issues Teaching Recipient: Patient, Family Teaching Methods: Demonstration Response to Teaching: Verbalize Understanding OT Short Term Goals Short Term Goals Time Frame: May 14, 2018 Eating(FIM): 7 Grooming(FIM): 6 Upper Body Dressing(FIM): 4 Lower Body Dressing(FIM): 3 Toileting(FIM): 4 Transfers (B,C,W/C) (FIM): 3 Toilet/Commode Transfer(FIM): 3 Shower Transfer(FIM): 3 Additional Short Term Goals: 1-Demonstrate ADL Tasks, 2-Verbalize Understanding , 3-ImproveStrength/Chas 1=Demonstrate adherence to instructed precautions during ADL tasks. 2=Patient will verbalize/demonstrate understanding of assistive devices/ modifications for ADL. 3=Patient will improve strength/tolerance for activity to enable patient to perform ADL's. OT Electrician Goals Electrician Goals Time Frame: May 28, 2018 Eating (FIM): 7 Grooming(FIM): 6 Bathing(FIM): 6 Bathing Location: L Arm, R Arm, L Upper Leg, R Upper Leg, L Lower Leg ( including foot), R Lower Leg (including foot), Chest, Abdomen, Buttocks, Perineal Area Upper Body Dressing(FIM): 6 Lower Body Dressing(FIM): 5 Toileting(FIM): 6 Transfers (B,C,W/C) (FIM): 6 Toilet/Commode Transfer(FIM): 6 Shower Transfer(FIM): 6 Additional Goals: 1-Demonstrate ADL Tasks, 2-Verbalize Understanding, 3- ImproveStrength/Chas 1=Demonstrate adherence to instructed precautions during ADL tasks. 2=Patient will verbalize/demonstrate understanding of assistive devices/ modifications for ADL. 3=Patient will improve strength/tolerance for activity to enable patient to perform ADL's. OT Education/Plan Problem List/Assessment Assessment: Decreased Activ Tolerance, Decreased Safety Aware, Decreased UE Strength, Dependent Transfers, Impaired Bed Mobility, Impaired Cognition, Impaired Funct Balance, Impaired Self-Care Skills Discharge Recommendations Plan/Recommendations: Continue POC Therapy D/C Recommendations: Long Term Placement Equpiment Recommendations-D/C: Extended Bath Bench, Extended Shower Sprayer, Thermit Welding Machine Operator Treatment Plan/Plan of Care Treatment,Training & Education: Yes Patient would benefit from OT for education, treatment and training to promote independence in ADL's, mobility, safety and/or upper extremity function for ADL' s. Plan of Care: ADL Retraining, Caregiver Training, Cognitive Retraining, UE Funct Exercise/Act, UE Neuromus Re-Ed/Coord Treatment Duration: May 28, 2018 Frequency: 5 times per week Estimated Hrs Per Day: .25 hour per day Agreement: Yes Rehab Potential: Fair Time/GCodes Start Time: 14:00 (1400 on 05/03/18) Stop Time: 14:10 (1410 on 05/03/2018) Total Time Billed (hr/min): 10 Billed Treatment Time 1, EX 10. Total 10 Minutes on 05/03/2018 Late Entry. ISSA BENDER OT May 04, 2018 11:32
[2018-05-04 12:00] VITALS: BP 105/62
--- NOTE | 2018-05-04 13:49 | Occ Therapy Progress Note ---
Therapy Progress Note at 1442 PM. Therapist visited twice to see Mrs Lexi Lezama . Pt" s daughter said that , " Mom is sleeping & not feeling good. will be good if we skip therapy today. Pt will be seen on next visit. Issa Aguilar OTR/ISSA BROUSSARD OT May 04, 2018 13:49
--- NOTE | 2018-05-04 15:17 | Diagnostic Imaging Report ---
INDICATION: Pneumonia, edema. COMPARISON: 05/01/2018. FINDINGS: Bilateral lower lobed infiltrates, greater left, have progressed. The bilateral effusions have also increased. No pneumothorax. IMPRESSION: Worsened infiltrates and pleural fluid. Dictated by: Dictated on workstation # [id number]
--- NOTE | 2018-05-04 15:34 | NUR ---
PALLIATIVE CARE consult received this morning. Patient was sleeping, respiration were shallow and even and unlabored. Cheeks are vladimir and her ears a plump. She is on Vapotherm at 25L 40 FiO2. I spent over an hour talking with patient's daughter Ava, and her [id number] Marisa. We had a long conversation regarding POC options. It was finally determined that over this weekend we would watch to see how she does. Family is concerned that the Ativan is the cause of her sleeping today, even though it was given last night. I did some education on this and suspicion that this is not the reason. Suggesting to hold the Ativan and see how she does with this. We will monitor her SOB and her sleeping over the weekend and if she continues to decline to the point of not waking we will transition to [facility]. Left patient's family after discussion and 5 minutes later RT Supriya finds me and reports low SPO2 in the upper 80's with an increase in Vapotherm settings to 25L and 60 FiO2. Went to the room and patient was awake and able to communicate, Visiting Nurse Adah was praying with her which she very much appreciated by the patient. Again spoke with Marisa and Ava about wishes. They both think it best to NOT escalate the O2 and to return it to the previous setting. They desire to have Fentanyl on the MAR as an option for air hunger if needed. This RN has spoken to Dr. De La Vega regarding the requests. Orders received for Fentanyl and RT to not increase the Oxygen Dr. Joseph was in the hospital and have updated her on the conversation and the POC for the weekend.
--- NOTE | 2018-05-04 15:38 | NUR ---
Follow up visit with pt, her Daughter Ava, and and other family present. Pt tearfully accepted prayer and expressed gratitude for our visit.
[2018-05-04 16:05] VITALS: BP 97/59
[2018-05-04] MEDS: cefTRIAXone FOR IV USE 1,000 MG in WATER (STERILE) FOR INJECTION 10 ML IV SCH (17:51)
[2018-05-04] MEDS: ENOXAPARIN 40 MG/0.4 ML (LOVENOX) SYR SC SCH (18:39)
[2018-05-04] MEDS: ATENOLOL 50 MG (TENORMIN) TAB PO SCH (21:16)
[2018-05-05] VITALS: BP 102/63
[2018-05-05] MEDS: ALPRAZolam 0.25 MG (XANAX) TAB PO PRN ×2 (00:17→23:22)
[2018-05-05] MEDS: fentaNYL INJECTION 100 MCG/2 ML AMP IVP PRN ×6 (01:07→22:03)
[2018-05-05] MEDS: methylPREDNISolone 40 MG/ML (Solu-MEDROL) VIAL IV SCH ×5 (01:07→23:14)
[2018-05-05] MEDS: RT-ALBUTEROL SULF 2.5 MG/3 ML PRE-MIX VIAL INH SCH ×6 (03:00→21:41)
[2018-05-05 05:12] LABS: BASOPHILS % (AUTO) 0 % (0-10); EOSINOPHILS % (AUTO) 0 % (0-10); HEMATOCRIT 34 % (35-52); HEMOGLOBIN 11.8 G/DL (11.5-16.0); LYMPHOCYTES # (AUTO) 0.7 X 10^3 (1.0-4.0); LYMPHOCYTES % (AUTO) 7 % (12-44); MEAN CORPUSCULAR HEMOGLOBIN 31 PG (25-34); MEAN CORPUSCULAR HGB CONC 35 G/DL (32-36); MEAN CORPUSCULAR VOLUME 91 FL (80-99); MEAN PLATELET VOLUME 10.6 FL (7.4-10.4); MONOCYTES # (AUTO) 0.7 X 10^3 (0.0-1.0); MONOCYTES % (AUTO) 7 % (0-12); NEUTROPHILS # (AUTO) 8.7 X 10^3 (1.8-7.8); NEUTROPHILS % (AUTO) 86 % (42-75); PLATELET COUNT 174 10^3/uL (130-400); RED CELL DISTRIBUTION WIDTH 14.8 % (10.0-14.5); WHITE BLOOD COUNT 10.1 10^3/uL (4.3-11.0)
[2018-05-05 05:44] LABS: BUN/CREATININE RATIO 27; CALCIUM 7.6 MG/DL (8.5-10.1); CARBON DIOXIDE 24 MMOL/L (21-32); CHLORIDE 97 MMOL/L (98-107); CREATININE SERUM 0.79 MG/DL (0.60-1.30); GFR ESTIMATED > 60; GLUCOSE 112 MG/DL (70-105); POTASSIUM 5.2 MMOL/L (3.6-5.0); SODIUM 131 MMOL/L (135-145)
[2018-05-05] MEDS: KCL 20 MEQ TAB (K-DUR) PO SCH (06:43)
[2018-05-05] MEDS: MULTIVIT W/MINERALS TAB (THERAGRAN M) PO SCH (06:43)
[2018-05-05] MEDS: LACTOBACILLUS ACIDOPHILUS (PROBIOTIC) CAPSULE PO SCH ×3 (06:43→17:26)
--- NOTE | 2018-05-05 07:42 | Pulmonary Progress Note ---
Sepsis Event Evaluation Height, Weight, BMI Height: 5'3.00" Weight: 118lbs. 8.0oz. 53.424820wo; 19.7 BMI Method: Exam Exam Vital Signs Date Time Temp Pulse Resp B/P (MAP) Pulse Ox O2 Delivery O2 Flow Rate FiO2 05/05/18 01:50 Vapotherm 25.00 40 05/05/18 00:00 97.6 66 20 102/63 (76) 91 Vapotherm 40.00 25.00 05/04/18 20:30 Vapotherm 25.00 40 05/04/18 18:51 Vapotherm 25.00 4 05/04/18 16:05 98.8 78 23 97/59 (72) 93 Vapotherm 40.00 25.00 05/04/18 14:20 88 Vapotherm 20.00 40 05/04/18 12:00 99.4 76 22 105/62 (76) 94 Vapotherm 40.00 25.00 05/04/18 10:20 99.4 05/04/18 10:11 92 Vapotherm 25.00 40 05/04/18 09:12 100.1 05/04/18 08:30 Vapotherm 25.00 40 05/04/18 08:00 99.5 82 22 121/73 (89) 96 Vapotherm 40.00 25.00 I & O 05/05/18 07:00 Intake Total 1030 ml Output Total 2250 ml Balance -1220 ml Height & Weight Height: 5'3.00" Weight: 118lbs. 8.0oz. 53.773705an; 19.7 BMI Method: General Appearance: Mild Distress (respiratory) HEENT: TMs Normal, Normal ENT Inspection Neck: Supple Respiratory: Decreased Breath Sounds, Respiratory Distress, Rhonci Cardiovascular: Regular Rate, Rhythm, Systolic Murmur Gastrointestinal: normal bowel sounds, non tender, soft Extremity: Non Tender, No Calf Tenderness, No Pedal Edema Neurologic/Psychiatric: Alert Skin: Warm/Dry Results Lab Laboratory Tests 05/04/18 05:35 05/05/18 04:55 Assessment/Plan Assessment/Plan Community acquired pneumonia r/o aspiration -Swallow eval was normal -Rocephin and azithromycin -CXR reviewed -Check CT of chest - reviewed shows pulmonary edema with bilateral pleural effusions -Will give 40mg of IV lasix -Hep lock IVF Hyperkalemia -D/C K+ Hyponatremia -lasix Acute bronchitis with bilateral wheezing -solumedrol 40 IV Q6 -SVNS Hypoxia -Oxygen -Vapotherm CANDY AGUILAR DO May 05, 2018 07:42
[2018-05-05 08:00] VITALS: BP 110/67
[2018-05-05] MEDS: RIVASTIGMINE 1.5 MG (EXELON) CAP PO SCH (09:27)
[2018-05-05] MEDS: PANTOPRAZOLE 40 MG (PROTONIX) TAB PO SCH ×2 (09:27→21:01)
[2018-05-05] MEDS: FUROSEMIDE 40 MG/4 ML INJ (LASIX) IVP SCH (09:27)
[2018-05-05] MEDS: MEMANTINE 5 MG (NAMENDA) TABLET PO SCH ×2 (09:27→21:00)
[2018-05-05] MEDS: guaiFENesin (MUCINEX) 600 MG TAB PO SCH ×2 (09:27→21:00)
--- NOTE | 2018-05-05 12:36 | Progress Note-Hospitalist ---
Subjective HPI/CC On Admission Date Seen by Provider: May 05, 2018 Time Seen by Provider: 08:00 CC: Pneumonia HPI: This is an 87yoWF clinic patient of Dr Joseph who presents as a direct admit from home after being found down for a short time before being found and suspected pneumonia with wheezing and dehydration and mild rhabdomyolysis. Patient has moderate dementia and was in the midst of moving to [facility] within the month until this acute illness has likely changed to plans to skilled care prior to AL placement. Currently she appears to be fatigued and chronically ill and very declined since last seen by this examiner. Her family is at the bedside. She is DNR and conservative management will be initiated for supportive care. Patient had a good night and slept a bit she reports and she denies any pain. Will consult PT/OT and SW tomorrow and maintain fluids in the meantime. Subjective/Events-last exam Patient sleeping opens eyes to verbal stimulation denies shortness of breath or pain and then shortly dozes back to sleep. Objective Exam Vital Signs Vital Signs Date Time Temp Pulse Resp B/P (MAP) Pulse Ox O2 Delivery O2 Flow Rate FiO2 05/05/18 10:05 Vapotherm 25.00 40 05/05/18 08:00 98.4 63 20 110/67 (81) 88 Capillary Refill : Less Than 3 Seconds General Appearance: No Apparent Distress, Chronically ill Respiratory: Decreased Breath Sounds, Respiratory Distress, Rhonci, Wheezing ( Diffusely noted) Cardiovascular: Regular Rate, Rhythm, Systolic Murmur Extremity: Non Tender, No Calf Tenderness, Other Neurologic/Psychiatric: Other (Somnolent but arousable) Skin: Warm/Dry Results/Procedures Lab Laboratory Tests 05/05/18 04:55 Patient resulted labs reviewed. Assessment/Plan Assessment and Plan Assess & Plan/Chief Complaint 1. Probable left lower lobe pneumonia with progressive respiratory failure possible ARDS. After family had gathered this afternoon will likely be switching to comfort care. 2. Moderately advanced Alzheimer's dementia. Critical Care Critically Ill Patient Clinical Quality Measures DVT/VTE Risk/Contraindication: Risk Factor Score Per Nursin RFS Level Per Nursing on Admit: 4+=Very High KENJI CHACON MD May 05, 2018 12:36
--- NOTE | 2018-05-05 13:41 | NUR ---
RECEIVED CALL FROM DR CHACON. NEW ORDERS RECEIVED.
[2018-05-05] MEDS ORDERED: KETOROLAC 30 MG/ML VIAL IVP ONE (13:45)
[2018-05-05 16:45] VITALS: BP 112/61
[2018-05-05] MEDS: ENOXAPARIN 40 MG/0.4 ML (LOVENOX) SYR SC SCH (17:27)
[2018-05-05] MEDS: DOCUSATE SODIUM 100 MG (COLACE) CAP PO PRN (20:49)
[2018-05-05] MEDS: ATENOLOL 50 MG (TENORMIN) TAB PO SCH (21:02)
[2018-05-05 23:40] VITALS: BP 120/56
[2018-05-06] MEDS: fentaNYL INJECTION 100 MCG/2 ML AMP IVP PRN ×8 (00:07→19:02)
[2018-05-06] MEDS: RT-ALBUTEROL SULF 2.5 MG/3 ML PRE-MIX VIAL INH SCH ×4 (01:15→13:46)
[2018-05-06] MEDS: methylPREDNISolone 40 MG/ML (Solu-MEDROL) VIAL IV SCH ×2 (05:03→11:51)
[2018-05-06] MEDS: MULTIVIT W/MINERALS TAB (THERAGRAN M) PO SCH (07:15)
[2018-05-06] MEDS: LACTOBACILLUS ACIDOPHILUS (PROBIOTIC) CAPSULE PO SCH ×2 (07:17→11:51)
--- NOTE | 2018-05-06 09:00 | NUR ---
PT REPORT GIVEN TO RASHAUN NAJERA. REINALDO WILL ASSUME PATIENT CARE AT THIS TIME
[2018-05-06] MEDS: DOCUSATE SODIUM 100 MG (COLACE) CAP PO PRN (09:09)
[2018-05-06] MEDS: LIDOCAINE 4% (SALONPAS) PATCH TOP SCH (09:09)
[2018-05-06] MEDS: PANTOPRAZOLE 40 MG (PROTONIX) TAB PO SCH (09:27)
[2018-05-06] MEDS: RIVASTIGMINE 1.5 MG (EXELON) CAP PO SCH (09:28)
[2018-05-06] MEDS: FUROSEMIDE 40 MG/4 ML INJ (LASIX) IVP SCH (09:28)
[2018-05-06] MEDS: guaiFENesin (MUCINEX) 600 MG TAB PO SCH (09:28)
[2018-05-06] MEDS: MEMANTINE 5 MG (NAMENDA) TABLET PO SCH (09:28)
--- NOTE | 2018-05-06 12:30 | Progress Note-Hospitalist ---
Subjective HPI/CC On Admission Date Seen by Provider: May 06, 2018 Time Seen by Provider: 11:00 CC: Pneumonia HPI: This is an 87yoWF clinic patient of Dr Joseph who presents as a direct admit from home after being found down for a short time before being found and suspected pneumonia with wheezing and dehydration and mild rhabdomyolysis. Patient has moderate dementia and was in the midst of moving to [facility] within the month until this acute illness has likely changed to plans to skilled care prior to AL placement. Currently she appears to be fatigued and chronically ill and very declined since last seen by this examiner. Her family is at the bedside. She is DNR and conservative management will be initiated for supportive care. Patient had a good night and slept a bit she reports and she denies any pain. Will consult PT/OT and SW tomorrow and maintain fluids in the meantime. Objective Exam Vital Signs Vital Signs Date Time Temp Pulse Resp B/P (MAP) Pulse Ox O2 Delivery O2 Flow Rate FiO2 05/06/18 09:10 Vapotherm 20.00 40 05/05/18 23:40 97.7 74 28 120/56 (77) 97 Capillary Refill : Less Than 3 Seconds General Appearance: No Apparent Distress, Chronically ill Respiratory: No Accessory Muscle Use, No Respiratory Distress, Decreased Breath Sounds, Respiratory Distress, Rhonci, Wheezing (Minimal end expiratory wheezing respiratory rate is down in the low 20s with diffuse rales) Cardiovascular: Regular Rate, Rhythm, Systolic Murmur Extremity: Non Tender, No Calf Tenderness, Other Neurologic/Psychiatric: Other (Somnolent but arousable) Skin: Warm/Dry Results/Procedures Lab Patient resulted labs reviewed. Assessment/Plan Assessment and Plan Assess & Plan/Chief Complaint 1. Probable left lower lobe pneumonia with progressive respiratory failure possible ARDS. Essentially on comfort care will start by reducing Vapotherm with likely switch to nasal cannula IV narcotic and anti-anxiety medications as needed. Condition improved today but still has extremely poor prognosis. 2. Moderately advanced Alzheimer's dementia. Critical Care Critically Ill Patient Clinical Quality Measures DVT/VTE Risk/Contraindication: Risk Factor Score Per Nursin RFS Level Per Nursing on Admit: 4+=Very High KENJI CHACON MD May 06, 2018 12:29
--- NOTE | 2018-05-06 12:59 | Pulmonary Progress Note ---
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 Sepsis Event Evaluation Height, Weight, BMI Height: 5'3.00" Weight: 120lbs. 6.0oz. 54.843485yl; 19.7 BMI Method: Exam Exam Vital Signs Date Time Temp Pulse Resp B/P (MAP) Pulse Ox O2 Delivery O2 Flow Rate FiO2 05/06/18 09:10 Vapotherm 20.00 40 05/06/18 08:00 Vapotherm 20.00 40 05/06/18 06:42 20.00 40 05/05/18 23:40 97.7 74 28 120/56 (77) 97 Vapotherm 40.00 20.00 05/05/18 21:41 Vapotherm 20.00 40 05/05/18 19:45 Vapotherm 20.00 40 05/05/18 18:41 Vapotherm 25.00 40 05/05/18 16:45 98.9 66 20 112/61 (78) 89 Vapotherm 40.00 25.00 I & O 05/06/18 07:00 Intake Total 1130 ml Output Total 2350 ml Balance -1220 ml Height & Weight Height: 5'3.00" Weight: 120lbs. 6.0oz. 54.126286mc; 19.7 BMI Method: General Appearance: No Apparent Distress, Chronically ill Respiratory: No Accessory Muscle Use, No Respiratory Distress, Decreased Breath Sounds, Respiratory Distress, Rhonci, Wheezing (Minimal end expiratory wheezing respiratory rate is down in the low 20s with diffuse rales) Cardiovascular: Regular Rate, Rhythm, Systolic Murmur Gastrointestinal: normal bowel sounds, non tender, soft Extremity: Non Tender, No Calf Tenderness, Other Neurologic/Psychiatric: Other (Somnolent but arousable) Skin: Warm/Dry Results Lab Laboratory Tests 05/05/18 04:55 Assessment/Plan Assessment/Plan Community acquired pneumonia r/o aspiration Acute bronchitis with bilateral wheezing -solumedrol 40 IV Q6 -SVNS Hypoxia -Oxygen -Vapotherm Pt is now on hospice. I am going to sign off please call with any questions or concerns. CANDY AGUILAR DO May 06, 2018 12:59
[2018-05-06 13:00] VITALS: BP 108/55
[2018-05-06] MEDS: LORazepam INJ 2 MG/ML (ATIVAN) VIAL IVP PRN ×3 (13:35→21:28)
--- NOTE | 2018-05-06 19:42 | NUR ---
This RN received a call from Dr. Lezama. Orders received for Fentanyl patch 50 mcg q72 hrs.
[2018-05-06] MEDS ORDERED: fentaNYL PATCH 50 MCG (DURAGESIC) TD SCH (19:45)
[2018-05-06] MEDS: LIDOCAINE PATCH REMOVAL TP SCH (20:05)
[2018-05-07] MEDS: LIDOCAINE 4% (SALONPAS) PATCH TOP SCH (09:41)
--- NOTE | 2018-05-07 10:28 | NUR ---
PALLIATIVE CARE RN: LATE Entry for Friday 05/05 11:45. Spoke with Dr. Lezama and Dr. De La Vega before heading to patient room. Dr. Lezama said his daughter was coming in to see the patient and then they would transition to [facility] once the family has time to visit. This RN in to patient room to see patient and talk with family. Daughter is in the room and wishes to not talk inside the room. Patient is still on Vapotherm at the max allowed rate for her which is 20L 40 FiO2. She is resting with her eye cover on . Talked with daughter Ava for 1.5 hours on this day. Went over the dying process several different ways and also discussed life expectancy etc. 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 She was appropriately emotional. Left the conversation with the plan to go [facility] when the family is ready. Will reassess the patient on Monday to determine the next steps. Patient did awaken before this RN left and I had the opportunity to talk with her and assess her ability to understand. Patient was able to tell me about her career path and the many things he had done in her life. She was able to tell me of her plans to move in to [place]. She reports that she is getting and feeling better and still intends to get there. Patient was also able to tell me what Palliative Care does and that it is intended to help people with chronic illness or acute illness to be comfortable.
--- NOTE | 2018-05-07 10:46 | NUR ---
PALLIATIVE CARE RN received text last night from family member/friend, asking me to see patient this morning and to assist in the referral process to [facility]. This morning I spent 45 minutes talking with daughterAva about the dying process and helping her to understand the "normal" process. She has lots of questions especially about life expectancy. I told her that there is not any way of knowing this for sure but based on what I see, it could be a week or more. Patient does appear comfortable currently with respirations in the 22-25 range and regular. She did awaken briefly with we turned her and reported no pain at that time. Ava and I took that opportunity to explain to the patient her medical prognosis and to explain to her that we will keep her comfortable. She seemed to understand and asked no questions. Will continue to monitor and offer support. Referral sent to [facility] and patient already has placement waiting at [facility].
--- NOTE | 2018-05-07 14:22 | NUR ---
PALLIATIVE CARE RN in to check on patient, RASHAUN Matamoros from [facility] is in room. During discussion about needs for equipment it was asked by daughter to take the O2 off. However, she wanted to wait until RN was ready with a dose of Ativan. Once all was in place O2 was removed. Patient still able to answer questions and denied any adverse reaction to the O2 removal. Now currently off of O2 and RR around 20-22, unlabored. No current needs. Will continue to offer support as needed.
--- NOTE | 2018-05-07 17:03 | NUR ---
Extended visit with pt, daughter Ava and spouse, Lonny. Pt's farm implement engine mechanic, Rajesh Goodman visited and prayed with the family today. Offered active listening as Ava shared healing memories about her mom, and thanked her for all the ways she loved and taught them. Ava also shared stories about her mother's life, self educated and pursuing higher education later in life. Led family in the Lord's prayer per their request, and followed by reading the Psalm from pt's family bible.
--- NOTE | 2018-05-07 17:50 | Progress Note (SOAP) ---
Subjective Date Seen by a Provider: May 07, 2018 Time Seen by a Provider: 12:30 Subjective/Events-last exam Fwup pneumonia, elevated CPK--rhabdomyolysis, Hypertension, GERD, Dementia, pulmonary edema. Daughter and baseball glove shaper at bedside. Patient sleeping but did arouse to say she had no pain then went back to sleep. Objective Exam Vital Signs Date Time Temp Pulse Resp B/P (MAP) Pulse Ox O2 Delivery O2 Flow Rate FiO2 05/07/18 10:30 Nasal Cannula 2.00 05/07/18 08:00 Nasal Cannula 2.00 05/06/18 20:00 Vapotherm 20.00 40 05/06/18 19:49 Nasal Cannula 2.00 I & O 05/07/18 07:00 Intake Total 1200 ml Output Total 1400 ml Balance -200 ml Capillary Refill : Less Than 3 Seconds General Appearance: Mild Distress (resting with some respiratory work of breathing) Respiratory: Crackles, Decreased Breath Sounds, Respiratory Distress, Wheezing Cardiovascular: Regular Rate, Rhythm Gastrointestinal: normal bowel sounds, soft Extremity: Non Tender, No Calf Tenderness Neurologic/Psychiatric: Other (sleeping) Skin: Ecchymosis Results Lab Microbiology 04/28/18 Blood Culture - Final, Complete No growth 04/29/18 Gram Stain - Final, Complete 04/29/18 Sputum Culture - Final, Complete Usual upper respiratory makenzie Assessment/Plan Assessment/Plan Assess & Plan/Chief Complaint 1. Acute Community Acquired Pneumonia--On Rocephin/Zithromax and SVNs 2. Elevated CPK--probable rhabdomyolysis 3. Choking with Possible Aspiration--swallow eval normal 4. Hypertension--restarted on home meds 5. GERD--on protonix 6. Alzheimer's Dementia--home meds resumed 7. RAD/Respiratory Distress--on Vapotherm 8. Pulmonary Edema--on lasix but lungs more crackly today 9. Family has decided on [facility] with [facility]--plans for DC tomorrow Clinical Quality Measures DVT/VTE Risk/Contraindication: Risk Factor Score Per Nursin RFS Level Per Nursing on Admit: 4+=Very High NETTE MAYO DO May 07, 2018 17:50
[2018-05-07] MEDS ORDERED: LORA2ORA PO (17:55)
[2018-05-07] MEDS ORDERED: ONDA4TAB11 PO (17:55)
[2018-05-07] MEDS ORDERED: FENT1PAT9 TD (17:55)
[2018-05-07] MEDS: LIDOCAINE PATCH REMOVAL TP SCH (21:56)
[2018-05-08] MEDS: fentaNYL INJECTION 100 MCG/2 ML AMP IVP PRN ×2 (02:43→04:46)
--- NOTE | 2018-05-08 08:08 | NUR ---
when making round daughter voiced she was wanting pt to have biotin mouth spray -- called DR MAYO not answer left text message
[2018-05-08] MEDS ORDERED: SALI45SP MM (08:47)
--- NOTE | 2018-05-08 08:49 | Discharge Instructions ---
Discharge Instructions Discharge Medications New, Converted or Re-Newed RX: RX on Chart Activity & Diet Discharge Diet: No Restrictions NETTE MAYO DO May 08, 2018 08:49
[2018-05-08] MEDS ORDERED: SALIVA STIMULANT MOUTH SPRAY (BIOTENE) 1.5 OZ MM PRN (09:00)
--- NOTE | 2018-05-08 10:28 | NUR ---
FINAL DISCHARGE PLAN: Patient is discharged today to [facility] with [facility]. I have faxed orders to both agencies and have confirmation of delivery. Spoke with RASHAUN Matamoros w [facility] and she has ordered equipment and once this is in place will call for dispatch of EMS. I have talked with her RN today updating her on the plan.
[2018-05-08] MEDS: LIDOCAINE 4% (SALONPAS) PATCH TOP SCH (11:11)
--- NOTE | 2018-05-08 13:37 | NUR ---
PALLIATIVE CARE RN in to see patient and speak to her daughter Ava. Patient is easily awakened and is able to answer questions, she is taking fluid in drop via straw. Patient is further decline today noting her shallow non-audible respirations, she has blueing around nose and a Gutierrez ulcer appearing spot on her left cheek. Also of note are her ears, they have noticeably thinned and are starting to curl. Due these findings it is anticipated that she has 24 to [address] Joseph was here after my assessment and is aware of the changes noted above. Still anticipating discharge with [facility] at [facility]. Will plan on giving a dose of one of the PRN comfort medications prior to EMS arrival to ease her comfort during transport.
--- NOTE | 2018-05-08 14:25 | NUR ---
PC RN spoke with Marisa Lezama regarding the signs of decline seen on assessment earlier. Also expressed my worry about daughter Ava and her exhausted state. Have yet to hear of equipment being delivered.
[2018-05-08] MEDS: LORazepam INJ 2 MG/ML (ATIVAN) VIAL IVP PRN (15:27)
--- NOTE | 2018-05-08 15:29 | NUR ---
Follow up visit with pt's daughter, Ava. She shared she is learning to simply be present and not anxiously stew over all the tasks surrounding her parent's care, especially of recent. She shared wrestling with feelings of guilt for not doing enough, or for times when her mother called for help and Ava felt overstretched. She was tearful and reflected the ability to accept she had done everything she could in love for her parents, and that she would continue to do so.
[2018-05-08 15:45] VITALS: BP 108/55
--- NOTE | 2018-05-08 19:42 | Discharge Summary ---
Diagnosis/Chief Complaint Date of Admission Apr 28, 2018 at 17:42 Date of Discharge May 08, 2018 at 15:45 Discharge Date: May 08, 2018 Discharge Diagnosis 1. Acute Respiratory Failure 2. Community Acquired Pneumonia 3. Pulmonary Edema/Pleural Effusions 4. Acute Diastolic CHF 5. Worsening Debility 6. Alzheimer's Dementia 7. Community Acquired Pneumonia 8. Acute Rhabdomyolysis Discharge Summary Hospital Course Hospital Course This is a 87 year old female who was found by family at home after a fall. She was directly admitted with pneumonia and respiratory distress as well as acute rhabdomyolysis. She was treated with rocephin and zithromax and initially required BIPAP. She was given IV ativan to tolerate the BIPAP. She was also started on IV solumedrol due to wheezing. There was concern about possible aspiration so speech therapy was consulted and the patient passed her swallow evaluation with cues with drinking and eating. She was having worsening respiratory distress so a CT angiogram of the chest was ordered which showed no PE but did confirm pulmonary edema and a pleural effusion. She was given IV lasix and cardiology as well as pulmonology were consulted. The patient was converted to vapotherm which she tolerated better but her respiratory status as well as her weakness and debility worsened. After discussing her worsening condition with the family in the light of her progressive dementia, palliative care was consulted to discuss hospice. The family decided on discharge to [facility] with [facility]. Procedures None. Discharge Physical Examination Allergies: Coded Allergies: Penicillins (Unverified Allergy, Unknown, RASH, 08/13/14) morphine (Verified Allergy, Unknown, 12/08/08) Uncoded Allergies: SSRI (Allergy, Unknown, RAPID PULSE, BP INCREASE, 08/13/14) Vitals & I&Os Vital Signs Date Time Temp Pulse Resp B/P (MAP) Pulse Ox O2 Delivery O2 Flow Rate FiO2 05/08/18 15:45 73 24 108/55 90 Room Air 2.00 05/06/18 20:00 40 05/06/18 13:00 98.7 General Appearance: Other (Resting) Respiratory: Other (bilateral rales/crackles) Cardiovascular: Regular Rate Extremities: Other (Edema) Psych/Mental Status: Other (sleeping) Discharge Home Medications Reviewed and agree with Discharge Medication list on patient's Discharge Instruction sheet Instructions to Patient/Family Please see electronic discharge instructions given to patient. Clinical Quality Measures DVT/VTE Risk/Contraindication: Risk Factor Score Per Nursin RFS Level Per Nursing on Admit: 4+=Very High NETTE MAYO DO May 08, 2018 19:42
== END 2018-05-08 15:45 | disposition hospice, inpatient (51) | DRG 193 ==
LOC: 4TH 17:42
PROVIDERS: ADMIT Internal Medicine; ATTEND Internal Medicine
DX: J18.1 Lobar pneumonia, unspecified organism (principal); T79.6XXA Traumatic ischemia of muscle, initial encounter; J96.00 Acute respiratory failure, unspecified whether with hypoxia or hypercapnia; J90 Pleural effusion, not elsewhere classified; J81.1 Chronic pulmonary edema; Z66 Do not resuscitate; Z51.5 Encounter for palliative care; I11.0 Hypertensive heart disease with heart failure; I50.31 Acute diastolic (congestive) heart failure; E87.1 Hypo-osmolality and hyponatremia; C85.90 Non-Hodgkin lymphoma, unspecified, unspecified site; E86.0 Dehydration; G30.9 Alzheimer's disease, unspecified; F02.80 Dementia in other diseases classified elsewhere, unspecified severity, without behavioral disturbance, psychotic disturbance, mood disturbance, and anxiety; J20.9 Acute bronchitis, unspecified; E87.5 Hyperkalemia; I48.0 Paroxysmal atrial fibrillation; K21.9 Gastro-esophageal reflux disease without esophagitis; E87.6 Hypokalemia; J45.909 Unspecified asthma, uncomplicated; K75.9 Inflammatory liver disease, unspecified; M81.0 Age-related osteoporosis without current pathological fracture; M19.91 Primary osteoarthritis, unspecified site; G47.9 Sleep disorder, unspecified; F41.9 Anxiety disorder, unspecified; R54 Age-related physical debility; Y92.009 Unspecified place in unspecified non-institutional (private) residence as the place of occurrence of the external cause; W19.XXXA Unspecified fall, initial encounter; Z85.3 Personal history of malignant neoplasm of breast
CPT/HCPCS: 36415; 71045; 71046; 71275; 80048; 80053; 81000; 82550; 83605; 83735; 83880; 84484; 85007; 85025; 85027; 87040; 87070; 87205; 93005; 93306; 94640; 94660; 94664; 94760; 94799